=== PATIENT | female | born 1955 | race Caucasian/White ===

== ENCOUNTER 2017-06-19 16:25 | Emergency (ER) | payer BC ==
[~2017-06-19] VITALS: Ht 172.7 cm; Wt 83.2 kg
[~2017-06-19 16:25] MED LIST: AMB10 PO; CYM60 PO; FSM70 PO; NORT25CA PO; NXM/40 PO; OXYC-57 PO; RIZA10TA18 PO; TIZA4CAP PO
[2017-06-19 16:27] VITALS: Ht 172.7 cm; Wt 83.2 kg
[2017-06-19] MEDS ORDERED: SODIUM CHLORIDE 0.9% 1000ML 500 ML IV STA (16:36)
[2017-06-19] MEDS ORDERED: ONDANSETRON INJ 2 MG/ML 2 ML VIAL IV STA (16:36)
[2017-06-19] MEDS ORDERED: SODIUM CHLORIDE 0.9% 1000ML 1,000 ML IV STA (16:36)
--- NOTE | 2017-06-19 16:48 | EMERGENCY ROOM VISIT NOTE ---
History Report prepared by Curtis: Isauro Gallegos Under the Supervision of: Dr. Harmeet Moeller M.D. First contact with patient: 16:30 Chief Complaint: ABDOMINAL PAIN Stated Complaint: INTERNAL PAIN Nursing Triage Summary: Pt c/o pain "where my gall bladder used to be the whole way down (into pelvis)" States she has "no female parts". Has had tests for UTI, started Bactrim, but culture was negative so she stopped taking it. Denies n/v/d History of Present Illness The patient is a 62 year old female who presents to the Emergency Room with complaints of intermittent abdominal pain that started two months ago. She rates her pain as an 8/10 in severity and states that the pain radiates from her upper abdomen "where the gallbladder used to be" down into her pelvis. The patient states that driving in the car, pushing on her abdomen, and having a bowel movement worsens her pain. She reports that a couple of weeks ago she went to Urgent Care where she had UTI testing done and was given Bactrim--she had taken a course of Cipro before the Bactrim. The patient reports that Urgent Care called her following her visit to report that her culture was negative and told her to stop taking her medication. She states that she took medication for the pain yesterday, but was experiencing nausea after taking it, which prompted her to stop. The patient admits to a history of a cholecystectomy, hysterectomy , and diverticulosis. She denies a history of an appendectomy or diverticulitis. The patient denies urinary symptoms, fever, cough, cold, congestion, current nausea, abdominal trauma, abdominal imaging, and medication allergies. Source of History: patient Onset: two months ago Symptom Intensity: 8/10 Timing: intermittent Modifying Factors (Worsening): other (pushing on the area, driving, bowel movement.) Associated Symptoms: No fevers, No cough, No nausea, No urinary symptoms Review of Systems See HPI for pertinent positives & negatives. A total of 10 systems reviewed and were otherwise negative. Past Medical & Surgical Medical Problems: (1) Fibromyalgia (2) Hypertension (3) Migraines Family History No pertinent family history Social History Smoking Status: Never Smoker Marital Status: Housing Status: lives with significant other Occupation Status: employed Current/Historical Medications Scheduled Amlodipine (Norvasc), 5 MG PO DAILY Armodafinil (Nuvigil), 250 MG PO DAILY Calcium Carbonate (Calcium), 600 MG PO DAILY Carisoprodol (Soma), 350 MG PO TID Cholecalciferol (Vitamin D3), 1,000 UNITS PO DAILY Escitalopram Oxalate (Lexapro), 20 MG PO DAILY Esomeprazole Magnesium (Nexium), 40 MG PO DAILY Gabapentin (Neurontin), 300 MG PO TID Hctz/Losartan (Hyzaar 25MG/100MG), 1 TAB PO DAILY Hydroxychloroquine Sulfate (Plaquenil), 200 MG PO DAILY Multivitamin (Multivitamin), 1 TAB PO DAILY Pramipexole Dihydrochloride (Mirapex), 0.25 MG PO HS Rosuvastatin Calcium (Crestor), 20 MG PO HS Zolpidem Tartrate (Ambien), 10 MG PO HS [Methylprednisolone], 1 DOSE INJ Q3MO Scheduled PRN Acetaminophen (Tylenol), 500 MG PO UD PRN for Pain Diclofenac W/ Misoprostol (Arthrotec), 1 TAB PO BID PRN for arthritis Hydrocodone/Acetaminophen 7.5MG/325MG ([place] 7.5MG/325MG), 1 TAB PO UD PRN for Pain Lidocaine (Aspercreme W/Lidocaine), 1 APPLN TOP UD PRN for Pain Riboflavin (Vitamin B-2), 400 MG PO DAILY PRN for HEADACHE PREVENTION Rizatriptan Benzoate (Maxalt), 10 MG PO UD PRN for Migraine Senna/Docusate Sod (Senokot S), 1 TAB PO DAILY PRN for Constipation Allergies Coded Allergies: No Known Allergies (Unverified , 06/19/17) Physical Exam Vital Signs Date Time Temp Pulse Resp B/P (MAP) Pulse Ox O2 Delivery O2 Flow Rate FiO2 06/19/17 20:08 36.4 66 18 117/75 95 06/19/17 18:45 64 18 121/78 95 06/19/17 16:27 36.4 79 17 143/96 96 Room Air Physical Exam GENERAL: Patient is in no acute distress. HEENT: No acute trauma, normocephalic atraumatic, mucous membranes moist, no nasal congestion, no scleral icterus. NECK: No stridor, no adenopathy, no meningismus, trachea is midline. LUNGS: Clear to auscultation bilaterally, no wheeze, no rhonchi, breath sounds equal. HEART: Subtle systolic murmur. Regular rate and rhythm ABDOMEN: Soft, tender primarily in lower left quadrant and left upper abdomen, bowel sounds positive, no hernias, no peritonitis. EXTREMITIES: No cyanosis or edema, full range of motion of all the joints without pain or difficulty, no signs for acute trauma. NEUROLOGIC: Oriented x 3, no acute motor or sensory deficits, no focal weakness. SKIN: No rash, no jaundice, no diaphoresis. Medical Decision & Procedures ER Provider Diagnostic Interpretation: CT results as stated below per my review and radiologist interpretation: CT OF THE ABDOMEN AND PELVIS WITH CONTRAST CLINICAL HISTORY: Abdominal pain. Evaluate for diverticulitis. COMPARISON STUDY: None. TECHNIQUE: Following IV administration of 115 mL of Optiray-320, axial images of the abdomen and pelvis were obtained from the lung bases to the proximal femurs. Images were reviewed in the axial, sagittal, and coronal planes. IV contrast was administered without complication. A dose lowering technique was utilized adhering to the principles of ALARA. Oral contrast was administered. CT DOSE: 505.85 mGy.cm FINDINGS: The heart is mildly enlarged. Mild dilatation of the common bile duct is likely due to cholecystectomy. There is fatty infiltration of the liver. The spleen, adrenal glands, kidneys and pancreas are unremarkable. There is no hydronephrosis. The caliber and wall thickness of small and large bowel are normal. The appendix is normal. Note is made of left colon diverticulosis without evidence for acute diverticulitis. There is no abscess or ascites. No lymphadenopathy is present. The uterus is surgically absent. No suspicious skeletal lesions are identified. There are postoperative findings within the lumbar spine. IMPRESSION: 1. No acute process within the abdomen or pelvis. 2. Colonic diverticulosis without evidence for acute diverticulitis. 3. No bowel obstruction. Normal appendix. Electronically signed by: Jorge Morton M.D. 06/19/2017 7:22 PM Dictated Date/Time: 06/19/2017 7:14 PM Laboratory Results 06/19/17 16:48 Red Blood Count 4.41, Mean Corpuscular Volume 91.6, Mean Corpuscular Hemoglobin 31.5, Mean Corpuscular Hemoglobin Concent 34.4, Mean Platelet Volume 9.9, Neutrophils (%) (Auto) 48.5, Lymphocytes (%) (Auto) 44.7, Monocytes (%) (Auto) 4.0, Eosinophils (%) (Auto) 2.2, Basophils (%) (Auto) 0.4, Neutrophils # (Auto) 4.38, Lymphocytes # (Auto) 4.04, Monocytes # (Auto) 0.36, Eosinophils # (Auto) 0.20, Basophils # (Auto) 0.04 06/19/17 16:48 Test 06/19/17 00:00 06/19/17 16:48 Urine Color YELLOW Urine Appearance CLEAR (CLEAR) Urine pH 5.0 (4.5-7.5) Urine Specific [place] 1.015 (1.000-1.030) Urine Protein NEG (NEG) Urine Glucose (UA) NEG (NEG) Urine Ketones NEG (NEG) Urine Occult Blood NEG (NEG) Urine Nitrite NEG (NEG) Urine Bilirubin NEG (NEG) Urine Urobilinogen NEG (NEG) Urine Leukocyte Esterase NEG (NEG) White Blood Count 9.04 K/uL (4.8-10.8) Red Blood Count 4.41 M/uL (4.2-5.4) Hemoglobin 13.9 g/dL (12.0-16.0) Hematocrit 40.4 % (37-47) Mean Corpuscular Volume 91.6 fL (80-100) Mean Corpuscular Hemoglobin 31.5 pg (25-34) Mean Corpuscular Hemoglobin Concent 34.4 g/dl (32-36) Platelet Count 291 K/uL (130-400) Mean Platelet Volume 9.9 fL (7.4-10.4) Neutrophils (%) (Auto) 48.5 % Lymphocytes (%) (Auto) 44.7 % Monocytes (%) (Auto) 4.0 % Eosinophils (%) (Auto) 2.2 % Basophils (%) (Auto) 0.4 % Neutrophils # (Auto) 4.38 K/uL (1.4-6.5) Lymphocytes # (Auto) 4.04 K/uL (1.2-3.4) Monocytes # (Auto) 0.36 K/uL (0.11-0.59) Eosinophils # (Auto) 0.20 K/uL (0-0.5) Basophils # (Auto) 0.04 K/uL (0-0.2) RDW Standard Deviation 45.2 fL (36.4-46.3) RDW Coefficient of Variation 13.4 % (11.5-14.5) Immature Granulocyte % (Auto) 0.2 % Immature Granulocyte # (Auto) 0.02 K/uL (0.00-0.02) Anion Gap 9.0 mmol/L (3-11) Est Creatinine Clear Calc Drug Dose 67.6 ml/min Estimated GFR () 70.9 Estimated GFR (Non- 61.2 BUN/Creatinine Ratio 18.8 (10-20) Calcium Level 10.0 mg/dl (8.5-10.1) Total Bilirubin 0.5 mg/dl (0.2-1) Aspartate Amino Transf (AST/SGOT) 29 U/L (15-37) Alanine Aminotransferase (ALT/SGPT) 53 U/L (12-78) Alkaline Phosphatase 48 U/L (45-117) Total Protein 7.8 gm/dl (6.4-8.2) Albumin 4.6 gm/dl (3.4-5.0) Globulin 3.2 gm/dl (2.5-4.0) Albumin/Globulin Ratio 1.4 (0.9-2) Lipase 171 U/L (73-393) Laboratory results reviewed by me. Medications Administered Medications (Trade) Dose Ordered Sig/Edwin Route Start Time Stop Time Status Last Admin Dose Admin Sodium Chloride 500 ml @ 999 mls/hr Q31M STAT IV 06/19/17 16:36 06/19/17 17:06 DC 06/19/17 16:36 999 MLS/HR Ondansetron HCl (Zofran Inj) 4 mg NOW STAT IV 06/19/17 16:36 06/19/17 16:37 DC 06/19/17 17:26 4 MG Sodium Chloride 1,000 ml @ 200 mls/hr Q5H STAT IV 06/19/17 16:36 06/19/17 20:53 DC 06/19/17 16:36 200 MLS/HR Ketorolac Tromethamine (Toradol Inj) 30 mg NOW STAT IV 06/19/17 17:20 06/19/17 17:21 DC 06/19/17 17:27 30 MG Morphine Sulfate (MoRPHine SULFATE INJ) 4 mg Q15M PRN IV 06/19/17 19:15 06/19/17 20:53 DC 06/19/17 19:23 4 MG ED Course 1631: The patient was evaluated in room B03B. A complete history and physical exam was performed 1636: Sodium Chloride 1000 ml @ 200 mls/hr IV, Zofran Injection 4 mg IV, Sodium Chloride 500 ml @ 999 mls/hr IV. 1720: Toradol Injection 30 mg IV. 1914: Morphine Sulfate 4 mg IV. 1931: Reevaluated the patient and she is doing well. Discussed results and discharge instructions: She verbalized understanding and agreement. The patient is ready for discharge. Medical Decision The patient is a 62 year old female who presents to the ED with complaints of intermittent abdominal pain that started two months ago. Differential diagnoses considered include diverticulitis appendicitis, UTI, pancreatitis, hernia, malignancy, musculoskeletal pain, renal stone, and renal failure. Medication Reconciliation: I attest that I have personally reviewed the patient' s current medication list. Blood pressure screening: Patient was found to have a slightly elevated blood pressure due to circumstances. I do not believe that the patient requires hypertension monitoring. There is no leukocytosis or concerning anemia. No significant electrolyte abnormality or kidney failure. There is no hepatitis. Urinalysis does not show infection. Abdominal and pelvis CT does not show diverticulitis or any evidence for abscess. There is no bowel obstruction. No findings on CT that would explain her pain. On exam, the patient was not febrile or toxic, there was no peritonitis. The patient was told the results of all her testing. During her ER stay, she received IV saline, IV Toradol, IV Zofran and IV morphine. She is comfortable. The patient will need to follow with her doctors office and possibly GI, the cause for the pain is not clear. She understands that she should return for fever, worsening symptoms or persistent vomiting. Impression Primary Impression: Left sided abdominal pain Scribe Attestation The scribe's documentation has been prepared under my direction and personally reviewed by me in its entirety. I confirm that the note above accurately reflects all work, treatment, procedures, and medical decision making performed by me. Departure Information Dispostion Home / Self-Care Referrals Latanya Tyler MD (PCP) Forms Call Back Authorization, HOME CARE DOCUMENTATION FORM, IMPORTANT VISIT INFORMATION Patient Instructions My [facility] Additional Instructions heat to the area may help follow with your doctor, you may need a GI referral return for fever, vomiting or uncontrolled pain lab testing and imaging today was all ok
[2017-06-19] MEDS ORDERED: OPTIRAY 320 IV PRN (17:00)
[2017-06-19 17:01] LABS: MANUAL MICROSCOPIC REQUIRED? NO; REVIEW REQ? NO; URINE APPEARANCE CLEAR (CLEAR); URINE BILIRUBIN NEG (NEG); URINE COLOR YELLOW; URINE NITRITE NEG (NEG); URINE SPECIFIC GRAVITY 1.015 (1.000-1.030); UROBILINOGEN NEG (NEG); ZZUR CULT IF INDIC CLEAN CATCH NO
[2017-06-19 17:03] LABS: BASO % 0.4 %; BASO ABS # 0.04 K/uL (0-0.2); COMPLETE YES; EOS % 2.2 %; HEMATOCRIT 40.4 % (37-47); IG% 0.2 %; LYMPH % 44.7 %; LYMPH ABS # 4.04 K/uL (1.2-3.4); MEAN CELL VOLUME 91.6 fL (80-100); MEAN CORPUSCULAR HEMOGLOBIN 31.5 pg (25-34); MEAN CORPUSCULAR HGB CONC 34.4 g/dl (32-36); MEAN PLATELET VOLUME 9.9 fL (7.4-10.4); NEUT % 48.5 %; PLATELET COUNT 291 K/uL (130-400); RED BLOOD COUNT 4.41 M/uL (4.2-5.4); WHITE BLOOD COUNT 9.04 K/uL (4.8-10.8)
[2017-06-19] MEDS ORDERED: GABA-113 PO (17:10)
[2017-06-19] MEDS ORDERED: ESCI1TAB10 PO (17:10)
[2017-06-19] MEDS ORDERED: AMLO-110 PO (17:10)
[2017-06-19] MEDS ORDERED: ZOLP10TA PO (17:10)
[2017-06-19] MEDS ORDERED: CARI350T28 PO (17:10)
[2017-06-19] MEDS ORDERED: HYZ/10015 PO (17:10)
[2017-06-19] MEDS ORDERED: VITB2100 PO (17:10)
[2017-06-19] MEDS ORDERED: HYDR200T5 PO (17:10)
[2017-06-19] MEDS ORDERED: SENN-65 PO (17:11)
[2017-06-19] MEDS ORDERED: CALC-393 PO (17:11)
[2017-06-19] MEDS ORDERED: ROSU20TA PO (17:11)
[2017-06-19] MEDS ORDERED: CHOL1000 PO (17:11)
[2017-06-19] MEDS ORDERED: PRAM1TAB52 PO (17:11)
[2017-06-19] MEDS ORDERED: LIDO16CR TOP (17:11)
[2017-06-19] MEDS ORDERED: RIZA10TA18 PO (17:11)
[2017-06-19] MEDS ORDERED: ACET-1256 PO (17:11)
[2017-06-19] MEDS ORDERED: NXM/40 PO (17:11)
[2017-06-19] MEDS ORDERED: HYDR-3983 PO (17:11)
[2017-06-19] MEDS ORDERED: ARMO250T5 PO (17:11)
[2017-06-19] MEDS ORDERED: MULT-506 PO (17:11)
[2017-06-19] MEDS ORDERED: METHYLPREDNISOLONE INJ (17:11)
[2017-06-19] MEDS ORDERED: KETOROLAC TROMETHAMINE 30 MG/ML VIAL IV STA (17:20)
[2017-06-19 17:21] LABS: BUN/CREATININE RATIO 18.8 (10-20); POTASSIUM 3.4 mmol/L (3.5-5.1)
[2017-06-19 17:24] LABS: ALB/GLOB RATIO 1.4 (0.9-2)
[2017-06-19] MEDS ORDERED: MoRPHine SULFATE 4 MG/ML 1 ML CARP\\VIAL IV PRN (19:15)
--- NOTE | 2017-06-19 19:24 | DIAGNOSTIC IMAGING REPORT ---
CT OF THE ABDOMEN AND PELVIS WITH CONTRAST CLINICAL HISTORY: Abdominal pain. Evaluate for diverticulitis. COMPARISON STUDY: None. TECHNIQUE: Following IV administration of 115 mL of Optiray-320, axial images of the abdomen and pelvis were obtained from the lung bases to the proximal femurs. Images were reviewed in the axial, sagittal, and coronal planes. IV contrast was administered without complication. A dose lowering technique was utilized adhering to the principles of ALARA. Oral contrast was administered. CT DOSE: 505.85 mGy.cm FINDINGS: The heart is mildly enlarged. Mild dilatation of the common bile duct is likely due to cholecystectomy. There is fatty infiltration of the liver. The spleen, adrenal glands, kidneys and pancreas are unremarkable. There is no hydronephrosis. The caliber and wall thickness of small and large bowel are normal. The appendix is normal. Note is made of left colon diverticulosis without evidence for acute diverticulitis. There is no abscess or ascites. No lymphadenopathy is present. The uterus is surgically absent. No suspicious skeletal lesions are identified. There are postoperative findings within the lumbar spine. IMPRESSION: 1. No acute process within the abdomen or pelvis. 2. Colonic diverticulosis without evidence for acute diverticulitis. 3. No bowel obstruction. Normal appendix. Electronically signed by: Jorge Morton M.D. 06/19/2017 7:22 PM Dictated Date/Time: 06/19/2017 7:14 PM
[2017-06-19 20:08] VITALS: BP 117/75; PULSE 66; TEMP 36.4; O2SAT 95
== END 2017-06-19 20:00 | disposition home or self-care (01) ==
LOC: C.EDB 16:26
DX: R10.12 Left upper quadrant pain (principal); M79.7 Fibromyalgia; I10 Essential (primary) hypertension

== ENCOUNTER 2017-08-07 15:44 | Emergency (ER) | payer BC ==
[~2017-08-07] VITALS: Ht 172.7 cm; Wt 84.5 kg
[~2017-08-07 15:44] MED LIST changes: +ACET-1256 PO; -AMB10 PO; +AMLO-110 PO; +ARMO250T5 PO; +CALC-393 PO; +CARI350T28 PO; +CHOL1000 PO; -CYM60 PO; +ESCI1TAB10 PO; -FSM70 PO; +GABA-113 PO; +HYDR-3983 PO; +HYDR200T5 PO; +HYZ/10015 PO; +LIDO16CR TOP; +METHYLPREDNISOLONE INJ; +MULT-506 PO; -NORT25CA PO; -OXYC-57 PO; +PRAM1TAB52 PO; +ROSU20TA PO; +SENN-65 PO; -TIZA4CAP PO; +VITB2100 PO; +ZOLP10TA PO
[2017-08-07 15:47] VITALS: TEMP 36.7; Ht 172.7 cm; Wt 84.5 kg
[2017-08-07] MEDS ORDERED: SODIUM CHLORIDE 0.9% 1000ML 1,000 ML IV STA (16:00)
[2017-08-07] MEDS ORDERED: ONDANSETRON INJ 2 MG/ML 2 ML VIAL IV STA (16:00)
[2017-08-07] MEDS ORDERED: KETOROLAC TROMETHAMINE 30 MG/ML VIAL IV STA (16:00)
[2017-08-07] MEDS ORDERED: DENO60SO INJ (16:04)
[2017-08-07 16:25] LABS: BASO % 0.3 %; BASO ABS # 0.03 K/uL (0-0.2); COMPLETE YES; EOS % 1.7 %; HEMATOCRIT 40.2 % (37-47); IG% 0.3 %; LYMPH % 34.8 %; LYMPH ABS # 3.45 K/uL (1.2-3.4); MEAN CELL VOLUME 91.6 fL (80-100); MEAN CORPUSCULAR HGB CONC 33.8 g/dl (32-36); MEAN PLATELET VOLUME 9.2 fL (7.4-10.4); MONO % 4.9 %; PLATELET COUNT 278 K/uL (130-400); RED BLOOD COUNT 4.39 M/uL (4.2-5.4); WHITE BLOOD COUNT 9.92 K/uL (4.8-10.8)
[2017-08-07 16:43] LABS: ALT/SGPT 49 U/L (12-78); BLOOD UREA NITROGEN 11 mg/dl (7-18); BUN/CREATININE RATIO 11.2 (10-20); CARBON DIOXIDE 27 mmol/L (21-32); CHLORIDE 95 mmol/L (98-107); CREATININE 0.97 mg/dl (0.60-1.20); GLUCOSE 94 mg/dl (70-99); POTASSIUM 3.5 mmol/L (3.5-5.1); SODIUM 133 mmol/L (136-145)
[2017-08-07 16:48] LABS: ALKALINE PHOSPHATASE 62 U/L (45-117); AST/SGOT 27 U/L (15-37)
[2017-08-07] MEDS ORDERED: DICLTAB4 PO (17:10)
--- NOTE | 2017-08-07 17:13 | DIAGNOSTIC IMAGING REPORT ---
CHEST ONE VIEW PORTABLE HISTORY: 62 years-old Female r jaw pain acute right-sided jaw pain. COMPARISON: Chest radiograph 03/04/2016 TECHNIQUE: Portable upright AP view of the chest FINDINGS: Cardiac silhouette is again mildly enlarged. No pneumothorax, pleural effusion or focal airspace consolidation. The bones of the chest appear grossly intact. Surgical clips are seen within the right upper abdomen. IMPRESSION: Mild cardiomegaly without acute cardiopulmonary process. The above report was generated using voice recognition software. It may contain grammatical, syntax or spelling errors. Electronically signed by: Shay Masters M.D. 08/07/2017 5:11 PM Dictated Date/Time: 08/07/2017 5:10 PM
[2017-08-07] MEDS ORDERED: MoRPHine SULFATE 4 MG/ML 1 ML CARP\\VIAL ONE (18:10)
[2017-08-07 18:40] VITALS: BP 117/72; PULSE 76; O2SAT 100
--- NOTE | 2017-08-07 20:12 | EMERGENCY ROOM VISIT NOTE ---
History Report prepared by Curtis: Nelia Ford Under the Supervision of: Dr. Stiven Mendoza D.O. First contact with patient: 15:51 Chief Complaint: ILLNESS Stated Complaint: JAW PAIN,DIZZY,NAUSEA,TIRED History of Present Illness The patient is a 62 year old female who presents to the Emergency Room with complaints of persistent right jaw pain starting 3 days ago. She was not doing anything when the pain started. She woke up with the pain. She has never had this pain before. The pain goes up near her ear, but she denies any ear pain. She denies any trouble swallowing, sore throat, or rhinorrhea. She has also been feeling intermittently lightheaded for the past 3 days. She last experienced this lightheadedness 1 hour ago. It has occurred while she was watching TV. She reports nausea, generalized weakness, muscle spasms, and fatigue. She denies any abdominal pain, fever, chest pain, SOB, vomiting, diarrhea, or dysuria. She notes that her mother was recently sick with facial cellulitis, MRSA, and C diff. She denies any history of GA. She has a history of fibromyalgia and osteoarthritis. She denies any new medications. Source of History: patient Onset: 3 days ago Position: jaw (right) Quality: other (pain) Timing: other (persistent) Associated Symptoms: + nausea, + fatigue, + weakness, No fevers, No sorethroat, No chest pain, No SOB, No vomiting, No abdominal pain, No diarrhea, No urinary symptoms Note: Pt reports lightheadedness, muscle spasms. Pt denies rhinorrhea, ear pain. Review of Systems See HPI for pertinent positives & negatives. A total of 10 systems reviewed and were otherwise negative. Past Medical & Surgical Medical Problems: (1) Fibromyalgia (2) Hypertension (3) Migraines Family History No pertinent family history Social History Smoking Status: Never Smoker Marital Status: Housing Status: lives with significant other Occupation Status: employed Current/Historical Medications Scheduled Amlodipine (Norvasc), 5 MG PO DAILY Calcium Carbonate (Calcium), 600 MG PO DAILY Carisoprodol (Soma), 350 MG PO TID Cholecalciferol (Vitamin D3), 1,000 UNITS PO DAILY Denosumab (Prolia), 1 DOSE INJ Q3MO Diclofenac W/ Misoprostol (Arthrotec), 1 TAB PO BID Escitalopram Oxalate (Lexapro), 20 MG PO DAILY Esomeprazole Magnesium (Nexium), 40 MG PO DAILY Gabapentin (Neurontin), 300 MG PO TID Hctz/Losartan (Hyzaar 25MG/100MG), 1 TAB PO DAILY Hydroxychloroquine Sulfate (Plaquenil), 200 MG PO DAILY Multivitamin (Multivitamin), 1 TAB PO DAILY Pramipexole Dihydrochloride (Mirapex), 0.25 MG PO HS Rosuvastatin Calcium (Crestor), 20 MG PO HS Zolpidem Tartrate (Ambien), 10 MG PO HS [Methylprednisolone], 1 DOSE INJ Q3MO Scheduled PRN Acetaminophen (Tylenol), 500 MG PO UD PRN for Pain Armodafinil (Nuvigil), 250 MG PO DAILY PRN for Hydrocodone/Acetaminophen 7.5MG/325MG ([place] 7.5MG/325MG), 1 TAB PO UD PRN for Pain Lidocaine (Aspercreme W/Lidocaine), 1 APPLN TOP UD PRN for Pain Riboflavin (Vitamin B-2), 400 MG PO DAILY PRN for HEADACHE PREVENTION Rizatriptan Benzoate (Maxalt), 10 MG PO UD PRN for Migraine Senna/Docusate Sod (Senokot S), 1 TAB PO DAILY PRN for Constipation Allergies Coded Allergies: No Known Allergies (Unverified , 08/07/17) Physical Exam Vital Signs Date Time Temp Pulse Resp B/P (MAP) Pulse Ox O2 Delivery O2 Flow Rate FiO2 08/07/17 18:40 76 17 117/72 100 08/07/17 18:20 68 14 111/65 94 Room Air 08/07/17 17:00 69 16 112/65 95 Room Air 08/07/17 16:26 70 17 125/75 95 Room Air 08/07/17 15:47 36.7 81 18 133/84 96 Room Air Physical Exam GENERAL: sitting up in bed, alert, well appearing, well nourished, no distress, non-toxic HEAD: Tenderness along the right jawline with no appreciable masses. Right inframandibular anterior cervical chain lymph node slightly tender to palpation. EYE EXAM: normal conjunctiva, PERRL and EOM's intact OROPHARYNX: no exudate, no erythema, lips, buccal mucosa, and tongue normal and mucous membranes are moist NECK: supple, no nuchal rigidity, no adenopathy, non-tender LUNGS: Clear to auscultation. Normal chest wall mechanics HEART: no murmurs, S1 normal and S2 normal ABDOMEN: abdomen soft, non-tender, normo-active bowel sounds, no masses, no rebound or guarding. BACK: Back is symmetrical on inspection and there is no deformity, no midline tenderness, no CVA tenderness. SKIN: no rashes and no bruising UPPER EXTREMITIES: upper extremities are grossly normal. LOWER EXTREMITIES: No pitting edema. NEURO EXAM: Normal sensorium, cranial nerves II-XII intact, normal speech, no weakness of arms, no weakness of legs. No drift. Finger to nose intact. Gross sensation intact. Medical Decision & Procedures ER Provider Diagnostic Interpretation: Radiology results as stated below per my review and the radiologist's interpretation: CHEST ONE VIEW PORTABLE HISTORY: 62 years-old Female r jaw pain acute right-sided jaw pain. COMPARISON: Chest radiograph 03/04/2016 TECHNIQUE: Portable upright AP view of the chest FINDINGS: Cardiac silhouette is again mildly enlarged. No pneumothorax, pleural effusion or focal airspace consolidation. The bones of the chest appear grossly intact. Surgical clips are seen within the right upper abdomen. IMPRESSION: Mild cardiomegaly without acute cardiopulmonary process. The above report was generated using voice recognition software. It may contain grammatical, syntax or spelling errors. Electronically signed by: Shay Masters M.D. 08/07/2017 5:11 PM Dictated Date/Time: 08/07/2017 5:10 PM Laboratory Results 08/07/17 16:15 Red Blood Count 4.39, Mean Corpuscular Volume 91.6, Mean Corpuscular Hemoglobin 31.0, Mean Corpuscular Hemoglobin Concent 33.8, Mean Platelet Volume 9.2, Neutrophils (%) (Auto) 58.0, Lymphocytes (%) (Auto) 34.8, Monocytes (%) (Auto) 4.9, Eosinophils (%) (Auto) 1.7, Basophils (%) (Auto) 0.3, Neutrophils # (Auto) 5.75, Lymphocytes # (Auto) 3.45, Monocytes # (Auto) 0.49, Eosinophils # (Auto) 0.17, Basophils # (Auto) 0.03 08/07/17 16:15 Test 08/07/17 16:15 White Blood Count 9.92 K/uL (4.8-10.8) Red Blood Count 4.39 M/uL (4.2-5.4) Hemoglobin 13.6 g/dL (12.0-16.0) Hematocrit 40.2 % (37-47) Mean Corpuscular Volume 91.6 fL (80-100) Mean Corpuscular Hemoglobin 31.0 pg (25-34) Mean Corpuscular Hemoglobin Concent 33.8 g/dl (32-36) Platelet Count 278 K/uL (130-400) Mean Platelet Volume 9.2 fL (7.4-10.4) Neutrophils (%) (Auto) 58.0 % Lymphocytes (%) (Auto) 34.8 % Monocytes (%) (Auto) 4.9 % Eosinophils (%) (Auto) 1.7 % Basophils (%) (Auto) 0.3 % Neutrophils # (Auto) 5.75 K/uL (1.4-6.5) Lymphocytes # (Auto) 3.45 K/uL (1.2-3.4) Monocytes # (Auto) 0.49 K/uL (0.11-0.59) Eosinophils # (Auto) 0.17 K/uL (0-0.5) Basophils # (Auto) 0.03 K/uL (0-0.2) RDW Standard Deviation 43.6 fL (36.4-46.3) RDW Coefficient of Variation 13.0 % (11.5-14.5) Immature Granulocyte % (Auto) 0.3 % Immature Granulocyte # (Auto) 0.03 K/uL (0.00-0.02) Anion Gap 11.0 mmol/L (3-11) Est Creatinine Clear Calc Drug Dose 70.2 ml/min Estimated GFR () 73.6 Estimated GFR (Non- 63.5 BUN/Creatinine Ratio 11.2 (10-20) Calcium Level 9.0 mg/dl (8.5-10.1) Total Bilirubin 0.4 mg/dl (0.2-1) Direct Bilirubin < 0.1 mg/dl (0-0.2) Aspartate Amino Transf (AST/SGOT) 27 U/L (15-37) Alanine Aminotransferase (ALT/SGPT) 49 U/L (12-78) Alkaline Phosphatase 62 U/L (45-117) Troponin I < 0.015 ng/ml (0-0.045) Total Protein 7.8 gm/dl (6.4-8.2) Albumin 4.1 gm/dl (3.4-5.0) Lipase 125 U/L (73-393) Laboratory results per my review. Medications Administered Medications (Trade) Dose Ordered Sig/Edwin Route Start Time Stop Time Status Last Admin Dose Admin Sodium Chloride 1,000 ml @ 999 mls/hr Q1H1M STAT IV 08/07/17 16:00 08/07/17 17:00 DC 08/07/17 16:16 999 MLS/HR Ketorolac Tromethamine (Toradol Inj) 30 mg NOW STAT IV 08/07/17 16:00 08/07/17 16:02 DC 08/07/17 16:16 30 MG Ondansetron HCl (Zofran Inj) 4 mg NOW STAT IV 08/07/17 16:00 08/07/17 16:02 DC 08/07/17 16:16 4 MG Morphine Sulfate (MoRPHine SULFATE INJ) 4 mg STK-MED ONCE .ROUTE 08/07/17 18:10 08/07/17 18:11 DC 08/07/17 18:12 4 MG ECG Indication: other (jaw pain) Rate (beats per minute): 70 Rhythm: sinus rhythm Findings: T-wave inversion (Septal), other (normal axis, normal intervals) Comparison ECG Date: 04-Mar-2016 Change: no significant change ED Course ED COURSE: Vital signs were reviewed and showed hypertension. The patients medical record was reviewed The above diagnostic studies were performed and reviewed. ED treatments and interventions as stated above. 1552: The patient was evaluated in room C7. A complete history and physical examination was performed. 1600: Zofran Inj 4 mg IV, Toradol Inj 30 mg IV, NSS 1000 ml @ 999 mls/hr IV. 1810: Morphine Sulfate 4 mg IV. 1830: Upon reevaluation, the patient is resting comfortably.I discussed my findings with the patient and she understands and agrees with the treatment plan. Based on the patients age, coexisting illnesses, exam and lab findings the decision to treat as an outpatient was made. The patient remained stable while under my care. The patient appeared well at the time of discharge. Medical Decision Differential diagnosis: abscess, parotitis, Fuentes's angina, retropharyngeal abscess, peritonsillar abscess, dental abscess, cardiac. Patient is a 62-year-old female who presents to ER for right-sided jaw pain. No signs of infection. Vitals are unremarkable. Minimal nausea. CBC on BMP, LFTs, bilirubin and troponin was negative. No chest pain or shortness of breath. No arm pain. No signs of Fuentes angina. Able to eat and drink without difficulty. Chest x-ray was unremarkable. EKG was unchanged. Minimal tenderness in the set of mandibular region which is acutely tender to palpation. Patient is noted complaints. Patient was given fluids, Toradol morphine. She did feel better. No signs of dental infection. Patient was discharged follow-up with PCP. Discussed with Pt concerning signs and symptoms to watch out for. Pt was instructed to follow up with their PCP and discussed with the patient their option to return to the ED at anytime for persistent or worsening symptoms. The appropriate anticipatory guidance and out-patient management, including indications for return to the emergency department, were explained at length to the patient and understood. Medication Reconcilliation Current Medication List: was personally reviewed by me Blood Pressure Screening Patient's blood pressure: Normal blood pressure Blood pressure disposition: Did not require urgent referral Impression Primary Impression: Jaw pain Scribe Attestation The scribe's documentation has been prepared under my direction and personally reviewed by me in its entirety. I confirm that the note above accurately reflects all work, treatment, procedures, and medical decision making performed by me. Departure Information Dispostion Home / Self-Care Referrals Latanya Tyler MD (PCP) Forms HOME CARE DOCUMENTATION FORM, IMPORTANT VISIT INFORMATION, WORK / SCHOOL INSTRUCTIONS Patient Instructions ED Cervical Adenitis No Abx Tx, My [facility], TMD Self Care Additional Instructions Please follow up with your primary care doctor or if you are a student, [facility] with in the next 24 hours. Any worsening of your symptoms, please return to the ED immediately. This includes any fevers greater than 100.4, trouble swallowing, swelling in mouth, trouble breathing, worsening pain, chest pain, shortness breath, persistent nausea, vomiting, unable to eat or drink, or any other concerning signs or symptoms from your standpoint. You were given medications during this visit that will inhibit your ability to drive, operate machinery and work. Please do NOT drive, operate machinery, drink alcohol or work for the next 12hrs. This take Tylenol or Motrin as needed for pain.
== END 2017-08-07 18:40 | disposition home or self-care (01) ==
LOC: C.EDB 15:45 → C.EDC 18:40
DX: R68.84 Jaw pain (principal); I10 Essential (primary) hypertension; Z79.899 Other long term (current) drug therapy

== ENCOUNTER → 2017-09-22 | Outpatient (CLI) | payer BC ==
[~2017-09-22] MED LIST changes: +DENO60SO INJ; +DICLTAB4 PO
== END | disposition home or self-care (01) ==
LOC: C.LABSPEC 17:30
PROVIDERS: ATTEND Family Medicine
DX: R39.9 Unspecified symptoms and signs involving the genitourinary system (principal)

== ENCOUNTER → 2017-09-27 | Outpatient (CLI) | payer BC ==
--- NOTE | 2017-09-27 12:39 | DIAGNOSTIC IMAGING REPORT ---
RENAL ULTRASOUND HISTORY: R35.0 Increased urinary frequency Pt with ongoing frequency, sens COMPARISON: None. FINDINGS: Right kidney: 10.1 cm. No hydronephrosis. Normal corticomedullary differentiation with mild cortical renal thinning. Left kidney: 10.3 cm. No hydronephrosis. Normal corticomedullary differentiation with mild cortical renal thinning. Bladder: No bladder wall thickening. The bladder is underdistended limiting evaluation. The bilateral ureteral jets were not identified. Miscellaneous: Hepatic steatosis. IMPRESSION: 1. Mild bilateral cortical renal thinning. No hydronephrosis. 2. Hepatic steatosis. Electronically signed by: Basil Cloud M.D. 09/27/2017 12:38 PM Dictated Date/Time: 09/27/2017 12:36 PM
== END | disposition home or self-care (01) ==
LOC: C.ULTR 12:05
PROVIDERS: ATTEND Family Medicine
DX: R35.0 Frequency of micturition (principal); K76.0 Fatty (change of) liver, not elsewhere classified

== ENCOUNTER → 2018-06-13 | Outpatient (CLI) | payer OTHER ==
[~2018-06-13] MED LIST changes: -AMLO-110 PO; +AMLO5TAB3 PO
[2018-06-14 06:07] LABS: HEMOGLOBIN A1C 5.9 % (4.5-5.6)
== END | disposition home or self-care (01) ==
LOC: C.LABPBG 11:22
PROVIDERS: ATTEND Family Medicine
DX: R94.6 Abnormal results of thyroid function studies (principal); R73.9 Hyperglycemia, unspecified

== ENCOUNTER 2021-02-27 08:56 | Observation (INO) ==
--- NOTE | 2021-01-30 10:32 | PAT Medication Instructions ---
Medication Instructions Date of Service January 30, 2021 Home Medications Medication Instructions Recorded mirabegron 50 mg tablet,extended 50 mg PO DAILY #90 tab 02/14/20 release 24 hr furosemide 20 mg tablet 20 mg PO QAM PRN #90 tab 08/18/20 amitriptyline 10 mg tablet 10 mg PO DAILY #90 tab 09/10/20 rosuvastatin 20 mg tablet 20 mg PO DAILY #90 tab 09/10/20 rizatriptan 10 mg tablet 10 mg PO .COMPLEX #20 tab 09/11/20 hydrochlorothiazide 25 mg tablet 25 mg PO DAILY #90 tab 10/22/20 amlodipine 5 mg tablet 5 mg PO DAILY #90 tab 10/29/20 omeprazole 40 mg capsule,delayed 40 mg PO DAILY #90 cap 10/29/20 release naloxegol 12.5 mg tablet 12.5 mg PO QAM #90 tab 11/21/20 bupropion HCl 150 mg 24 hr tablet, 150 mg PO DAILY #90 tab 12/23/20 extended release tramadol 50 mg tablet 50 mg PO Q6H PRN #30 tab 12/29/20 liothyronine 25 mcg tablet 25 mcg PO DAILY #90 tab 01/01/21 losartan 100 mg tablet 100 mg PO DAILY #90 tab 01/20/21 gabapentin 300 mg capsule 300 mg PO TID multivitamin 1 tab PO QAM morphine 30 mg capsule,extended release pellets 30 mg PO Q12H PRN denosumab 60 mg/mL subcutaneous syringe 60 mg SQ Q6MO pramipexole 0.25 mg tablet 0.5 mg PO HS zolpidem 10 mg tablet 10 mg PO HS mirabegron 50 mg tablet,extended release 24 hr 50 mg PO DAILY calcium carb 300 mg-D3 800 unit-mag ox 25 mg-copra sampler 0.5 mg-hansel-Zn tablet 1 tab PO BID sulfasalazine 500 mg tablet 500 mg PO BID furosemide 20 mg tablet 20 mg PO QAM PRN amitriptyline 10 mg tablet 10 mg PO DAILY rosuvastatin 20 mg tablet 20 mg PO DAILY rizatriptan 10 mg tablet 10 mg PO .COMPLEX hydrochlorothiazide 25 mg tablet 25 mg PO DAILY amlodipine 5 mg tablet 5 mg PO DAILY omeprazole 40 mg capsule,delayed release 40 mg PO DAILY naloxegol 12.5 mg tablet 12.5 mg PO QAM bupropion HCl 150 mg 24 hr tablet, extended release 150 mg PO DAILY tramadol 50 mg tablet 50 mg PO Q6H PRN liothyronine 25 mcg tablet 25 mcg PO DAILY cyclobenzaprine 10 mg PO TID diflunisal 500 mg PO BID leflunomide 10 mg PO QAM losartan 100 mg tablet 100 mg PO DAILY Continue as directed denosumab 60 mg/mL subcutaneous syringe 60 mg SQ Q6MO ASK your surgeon for instructions diflunisal 500 mg PO BID ASK your prescriber and surgeon leflunomide 10 mg PO QAM sulfasalazine 500 mg tablet 500 mg PO BID DO NOT take the morning of surgery multivitamin 1 tab PO QAM mirabegron 50 mg tablet,extended release 24 hr 50 mg PO DAILY calcium carb 300 mg-D3 800 unit-mag ox 25 mg-copra sampler 0.5 mg-hansel-Zn tablet 1 tab PO BID furosemide 20 mg tablet 20 mg PO QAM PRN hydrochlorothiazide 25 mg tablet 25 mg PO DAILY cyclobenzaprine 10 mg PO TID losartan 100 mg tablet 100 mg PO DAILY Take morning of surgery With a small sip of water, OTHERWISE NOTHING TO EAT OR DRINK AFTER MIDNIGHT: gabapentin 300 mg capsule 300 mg PO TID morphine 30 mg capsule,extended release pellets 30 mg PO Q12H PRN (okay to take up to 4 hours prior to surgery if needed) amitriptyline 10 mg tablet 10 mg PO DAILY rosuvastatin 20 mg tablet 20 mg PO DAILY rizatriptan 10 mg tablet 10 mg PO .COMPLEX (if needed) amlodipine 5 mg tablet 5 mg PO DAILY omeprazole 40 mg capsule,delayed release 40 mg PO DAILY naloxegol 12.5 mg tablet 12.5 mg PO QAM (okay to take up to 4 hours prior to surgery if needed) bupropion HCl 150 mg 24 hr tablet, extended release 150 mg PO DAILY tramadol 50 mg tablet 50 mg PO Q6H PRN (okay to take up to 4 hours prior to surgery if needed) liothyronine 25 mcg tablet 25 mcg PO DAILY Take evening before surgery gabapentin 300 mg capsule 300 mg PO TID morphine 30 mg capsule,extended release pellets 30 mg PO Q12H PRN (if needed) pramipexole 0.25 mg tablet 0.5 mg PO HS zolpidem 10 mg tablet 10 mg PO HS calcium carb 300 mg-D3 800 unit-mag ox 25 mg-copra sampler 0.5 mg-hansel-Zn tablet 1 tab PO BID furosemide 20 mg tablet 20 mg PO QAM PRN (if needed) tramadol 50 mg tablet 50 mg PO Q6H PRN (if needed) cyclobenzaprine 10 mg PO TID Other Notes If you have any questions please call us at [phone] or [phone] or [phone] or [phone]
--- NOTE | 2021-02-02 13:23 | Anesthesiology Consultation ---
Date of Service February 02, 2021 Assessment & Plan (1) Encounter for pre-operative examination: - COVID screening: Per assessment on 02/02: Travel screen negative, no known COVID-19 positive contacts or current COVID-19 related symptoms. Surgeon arrang ing preop COVID testing. Awaiting results. - Naloxegol: Patient taking Naloxegol (peripherally acting -opioid receptor antagonist) for chronic constipation. Reviewed with Dr. Ortiz > he recommends patient continue perioperatively (patient made aware). Chart Review Chart Review: Acceptable Risk for Surgery and Patient seen in Pre Admission Testing Teaching & Discussion Pre-Anesthesia Teaching/Discussion Notes: Instructed NPO after midnight before surgery,except medications with 15 cc of water. Medication instructions provided according to the PAT guidelines. History Surgery Operation Date: 02/27/21 11:35 Proposed Procedures p Right Reverse Total Shoulder Arthroplasty - Luan Lopez DO Height/Weight Height: 5 ft 8.5 in Weight: 89.3 kg Allergies Allergy/AdvReac Type Severity Reaction Status Date / Time oxycodone AdvReac Mild Nausea Verified 01/14/21 13:43 Medications Home Medications Medication Instructions Recorded Confirmed Last Taken varicella-zoster gE vac,2 of 2 50 ml IM .Administer 0.5 ml IM #0.5 ea 03/22/19 01/06/21 Unknown mcg IM suspension gabapentin 300 mg capsule 300 mg PO TID #90 cap 04/05/19 01/14/21 Unknown multivitamin 1 tab PO QAM 04/05/19 01/14/21 Unknown morphine 30 mg capsule,extended 30 mg PO Q12H PRN 04/12/19 01/14/21 Unknown release pellets denosumab 60 mg/mL subcutaneous 60 mg SQ Q6MO ml 10/23/19 01/14/21 Unknown syringe pramipexole 0.25 mg tablet 0.5 mg PO HS tab 10/23/19 01/14/21 Unknown zolpidem 10 mg tablet 10 mg PO HS tab 10/23/19 01/14/21 Unknown mirabegron 50 mg tablet,extended 50 mg PO DAILY #90 tab 02/14/20 01/14/21 Unknown release 24 hr calcium carb 300 mg-D3 800 1 tab PO BID 05/27/20 01/14/21 Unknown unit-mag ox 25 mg-coping machine assembler 0.5 mg-hansel-Zn tablet sulfasalazine 500 mg tablet 500 mg PO BID tab 07/29/20 01/14/21 Unknown furosemide 20 mg tablet 20 mg PO QAM PRN #90 tab 08/18/20 01/14/21 Unknown amitriptyline 10 mg tablet 10 mg PO DAILY #90 tab 09/10/20 01/14/21 Unknown rosuvastatin 20 mg tablet 20 mg PO DAILY #90 tab 09/10/20 01/14/21 Unknown rizatriptan 10 mg tablet 10 mg PO .COMPLEX #20 tab 09/11/20 01/14/21 Unknown hydrochlorothiazide 25 mg tablet 25 mg PO DAILY #90 tab 10/22/20 01/14/21 Unknown amlodipine 5 mg tablet 5 mg PO DAILY #90 tab 10/29/20 01/14/21 Unknown omeprazole 40 mg capsule,delayed 40 mg PO DAILY #90 cap 10/29/20 01/14/21 Unknown release naloxegol 12.5 mg tablet 12.5 mg PO QAM #90 tab 11/21/20 01/14/21 Unknown bupropion HCl 150 mg 24 hr tablet, 150 mg PO DAILY #90 tab 12/23/20 01/14/21 Unknown extended release tramadol 50 mg tablet 50 mg PO Q6H PRN #30 tab 12/29/20 01/14/21 Unknown liothyronine 25 mcg tablet 25 mcg PO DAILY #90 tab 01/01/21 01/14/21 Unknown cyclobenzaprine 10 mg PO TID 01/14/21 01/14/21 Unknown diflunisal 500 mg PO BID 01/14/21 01/14/21 Unknown leflunomide 10 mg PO QAM 01/14/21 01/14/21 Unknown losartan 100 mg tablet 100 mg PO DAILY #90 tab 01/20/21 Unknown Past Medical History Medical History Arthritis Benign hypertension Constipation Degenerative disc disease Depression with anxiety Fibromyalgia GERD (gastroesophageal reflux disease) Hyperhidrosis Hyperlipidemia Hypothyroidism Migraine Neuropathy Overactive bladder Restless leg syndrome Exercise / Class Metabolic Activity III < 4 Walking/Shop/Light housework Past Family History Family History Brother Myocardial infarction Family history of diabetes mellitus Mother Uterine cancer Sister Family history of diabetes mellitus Other No family history of adverse response to anesthesia Denies family history of Ovarian cancer Prostate cancer Breast cancer Colorectal cancer Past Surgical History Surgical History Fusion of spine Lumbar H/O colonoscopy H/O total hysterectomy History of cholecystectomy History of dilatation and curettage Multiple History of tonsillectomy and adenoidectomy History of tooth extraction Past Anesthesia History No Hx of Anesthesia Complications and No Family Hx of Anesthesia Complications History of PONV No Hx of PONV and No Hx of Motion Sickness Social History Smoking Status: Never smoker Do You Dip or Chew Tobacco: No Hx Alcohol Use: Yes Alcohol type: wine alcohol intake frequency: a few times a month Hx Substance Use: No substance use type: does not use Review of Systems No snoring. Patient denies chest pain, shortness of breath, fever, chills, cough, wheezing, palpitations. Physical Exam Vital Signs VITALS BP 135/88 P 92 TEMP 98.5 SP02 95%RA RESP 16 PHYSICAL Full neck and c-spine range of motion. Full TMJ range of motion. TMD 4 finger breaths Mallampati Score 1 Dentition: upper full upper dentures Lungs: clear throughout to auscultation Cardiac: regular rate and rhythm, no murmurs noted Spine: normal Carotid arteries: negative bruit Extremities: no edema Testing Laboratory Results 02/02/21 13:48 02/02/21 13:48 PT 10.1 Seconds (9.0-12.0) 02/02/21 13:48 INR 1.0 (0.9-1.1) 02/02/21 13:48 APTT 22.8 Seconds (21.0-31.0) 02/02/21 13:48 Blood Type A Positive 02/02/21 13:48 Antibody Screen NEGATIVE 02/02/21 13:48 Surgeon's office flagged regarding elevated WBC. Electrocardiogram Date: 02/02/21 NSR at 89bpm. Low voltage QRS. Chest X-Ray Date: 02/02/21 FINDINGS: Cardiac silhouette is upper limits of normal in size, unchanged. No pneumothorax, pleural effusion, airspace consolidation or overt pulmonary edema. Bones of the chest appear grossly intact. Surgical clips of the upper abdomen suggest cholecystectomy. Lucencies of the right shoulder are suggestive of glenohumeral subcortical cystic change. Partially imaged lumbar spinal fusion hardware. IMPRESSION: No acute process.
--- NOTE | 2021-02-02 14:17 | XRay Report ---
XR chest Pre-admission PA/Lat HISTORY: 65 years-old Female pat preoperative exam. No acute chest complaints COMPARISON: Chest radiograph 08/07/2017 TECHNIQUE: PA and lateral views of the chest FINDINGS: Cardiac silhouette is upper limits of normal in size, unchanged. No pneumothorax, pleural effusion, a irspace consolidation or overt pulmonary edema. Bones of the chest appear grossly intact. Surgical cl ips of the upper abdomen suggest cholecystectomy. Lucencies of the right shoulder are suggestive of g lenohumeral subcortical cystic change. Partially imaged lumbar spinal fusion hardware. IMPRESSION: No acute process. ACT 112: Negative or not required by law. The above report was generated using voice recognition software. It may contain grammatical, syntax o r spelling errors. Electronically signed by: Shay Masters M.D. 02/02/2021 2:15 PM
[2021-02-02 14:41] LABS: BUN Creatinine Ratio 11.6 (10-20); Calcium 9.4 mg/dl (8.5-10.1); Creatinine Clr Calc Pharmacy 76.3 ml/min; Est GFR (African American) 79.9; Potassium 3.6 mmol/L (3.5-5.1)
[2021-02-02 14:44] LABS: Basophils # (auto) 0.04 K/uL (0-0.2); Basophils % (auto) 0.4 %; Eosinophils # (auto) 0.25 K/uL (0-0.5); Eosinophils % (auto) 2.3 %; Hematocrit (blood only) 41.4 % (37-47); Hemoglobin 13.7 g/dL (12.0-16.0); Immature Granulocytes # (auto) 0.04 K/uL (0.00-0.02); Immature Granulocytes % (auto) 0.4 %; Lymphocytes % (auto) 27.3 %; Mean Corpuscular Hemoglobin 31.3 pg (25-34); Mean Corpuscular Hgb Conc 33.1 g/dL (32-36); Mean Corpuscular Volume 94.5 fL (80-100); Mean Platelet Volume 9.8 fL (7.4-10.4); Monocytes # (auto) 0.56 K/uL (0.11-0.59); Monocytes % (auto) 5.1 %; Neutrophils # (auto) 7.11 K/uL (1.4-6.5); Neutrophils % (auto) 64.5 %; Platelet Count 261 K/uL (130-400); RDW Coefficient of Variation 14.8 % (11.5-14.5); RDW Standard Deviation 51.7 fL (36.4-46.3); Red Blood Count 4.38 M/uL (4.2-5.4)
--- NOTE | 2021-02-02 14:46 | Electrocardiogram Report ---
Test Reason : Blood Pressure : / mmHG Vent. Rate : 089 BPM Atrial Rate : 089 BPM P-R Int : 188 ms QRS Dur : 066 ms QT Int : 346 ms P-R-T Axes : 067 064 058 degrees QTc Int : 420 ms Normal sinus rhythm Low voltage QRS Borderline ECG When compared with ECG of 07-AUG-2017 16:12, Nonspecific T wave abnormality has replaced inverted T waves in Anterior leads Confirmed by Tyrell Bowman ([id number]) on 02/02/2021 2:45:39 PM Referred By: Luan Lopez Confirmed By:Tyrell Bowman
[2021-02-02 14:56] LABS: Partial Thromboplastin Ratio 0.9; Partial Thromboplastin Time 22.8 Seconds (21.0-31.0); Prothrombin Time 10.1 Seconds (9.0-12.0)
--- NOTE | 2021-02-26 07:00 | History & Physical Report ---
Date of Service February 26, 2021 Assessment & Plan (1) Osteoarthritis of right shoulder: We will proceed with a right reverse shoulder arthroplasty. Postoperatively she will be placed in a sling and kept overnight in the hospital for postoperative medical management. She plans to use [facility] upon discharge. History of Present Illness Chief Complaint: Osteoarthritis of the right shoulder. Primary Care Provider: Latanya Tyler MD Azucena is a pleasant 65-year-old female who fell on her outstretched arm over a year ago. She has been having significant shoulder pain since. X-rays did show some arthritis. MRI showed worse arthritis and a large posterior bony Bankart lesion. She had extensive fluid extending into the infraspinatus and atrophy of her infraspinatus muscle belly. After failing over a year conservative treatment, she has elected proceed with a right reverse shoulder arthroplasty.. Allergies Allergy/AdvReac Type Severity Reaction Status Date / Time oxycodone AdvReac Mild Nausea Verified 01/14/21 13:43 Home Medications Medication Instructions Recorded Confirmed Type varicella-zoster gE vac,2 of 2 50 ml IM .Administer 0.5 ml IM #0.5 ea 03/22/19 01/06/21 History mcg IM suspension gabapentin 300 mg capsule 300 mg PO TID #90 cap 04/05/19 01/14/21 History multivitamin 1 tab PO QAM 04/05/19 01/14/21 History morphine 30 mg capsule,extended 30 mg PO Q12H PRN 04/12/19 01/14/21 History release pellets denosumab 60 mg/mL subcutaneous 60 mg SQ Q6MO ml 10/23/19 01/14/21 History syringe pramipexole 0.25 mg tablet 0.5 mg PO HS tab 10/23/19 01/14/21 History zolpidem 10 mg tablet 10 mg PO HS tab 10/23/19 01/14/21 History mirabegron 50 mg tablet,extended 50 mg PO DAILY #90 tab 02/14/20 01/14/21 Rx release 24 hr calcium carb 300 mg-D3 800 1 tab PO BID 05/27/20 01/14/21 History unit-mag ox 25 mg-[employer] 0.5 mg-hansel-Zn tablet sulfasalazine 500 mg tablet 500 mg PO BID tab 07/29/20 01/14/21 History amitriptyline 10 mg tablet 10 mg PO DAILY #90 tab 09/10/20 01/14/21 Rx rosuvastatin 20 mg tablet 20 mg PO DAILY #90 tab 09/10/20 01/14/21 Rx hydrochlorothiazide 25 mg tablet 25 mg PO DAILY #90 tab 10/22/20 01/14/21 Rx amlodipine 5 mg tablet 5 mg PO DAILY #90 tab 10/29/20 01/14/21 Rx omeprazole 40 mg capsule,delayed 40 mg PO DAILY #90 cap 10/29/20 01/14/21 Rx release naloxegol 12.5 mg tablet 12.5 mg PO QAM #90 tab 11/21/20 01/14/21 Rx bupropion HCl 150 mg 24 hr tablet, 150 mg PO DAILY #90 tab 12/23/20 01/14/21 Rx extended release tramadol 50 mg tablet 50 mg PO Q6H PRN #30 tab 12/29/20 01/14/21 Rx liothyronine 25 mcg tablet 25 mcg PO DAILY #90 tab 01/01/21 01/14/21 Rx cyclobenzaprine 10 mg PO TID 01/14/21 01/14/21 History diflunisal 500 mg PO BID 01/14/21 01/14/21 History leflunomide 10 mg PO QAM 01/14/21 01/14/21 History losartan 100 mg tablet 100 mg PO DAILY #90 tab 01/20/21 Rx sulfamethoxazole 800 1 tab PO BID 7 Days #14 tab 02/05/21 Rx mg-trimethoprim 160 mg tablet furosemide 20 mg tablet 20 mg PO QAM PRN #90 tab 02/09/21 Rx rizatriptan 10 mg tablet 10 mg PO .COMPLEX #20 tab 02/09/21 Rx Past Med/Surg History Medical History Arthritis Benign hypertension Constipation Degenerative disc disease Depression with anxiety Fibromyalgia GERD (gastroesophageal reflux disease) Hyperhidrosis Hyperlipidemia Hypothyroidism Migraine Neuropathy Overactive bladder Restless leg syndrome Surgical History Fusion of spine Lumbar H/O colonoscopy H/O total hysterectomy History of cholecystectomy History of dilatation and curettage Multiple History of tonsillectomy and adenoidectomy History of tooth extraction Family History Brother Myocardial infarction Family history of diabetes mellitus Mother Uterine cancer Sister Family history of diabetes mellitus Other No family history of adverse response to anesthesia Denies family history of Ovarian cancer Prostate cancer Breast cancer Colorectal cancer Social History Smoking Status: Never smoker Second Hand Exposure: Yes ( A CHILD); Hx Alcohol Use: Yes Alcohol type: wine Alcohol Intake Frequency: Monthly or Less Hx Substance Use: No Preferred Language: Korean Visual Impairment: No Limitations Hearing Ability: Normal Curtain Stretcher Required: No Beliefs That Will Affect Care: None marital status: Current Living Situation: Spouse current occupational status: disabled Feels Safe at Home: Yes Childhood Exposure to Second-Hand Smoke: Yes Dental Care, Regularly: Yes Physical Activity Frequency: 1-2 Times per Week Seatbelt Use: always Sunscreen Use: Yes Assistive Devices: Denture - Upper Review of Systems All systems reviewed & are unremarkable except as noted in HPI & below. Physical Exam On physical examination of the right shoulder, she has about 140 degrees forward elevation 40 degrees of external rotation. She has 4+ out of 5 motion with full can testing in 4-5 motion with external rotation. She is very weak with external rotation.. Constitutional WD/WN, vitals as above Eyes PERRL, conjunctivae normal, anicteric sclerae ENMT external ear and nose normal, oropharynx normal Neck trachea midline, no thyromegaly Respiratory normal respiratory effort Cardiovascular RRR, no murmur, no edema Gastrointestinal (Abdomen) normal bowel sounds, soft, nontender, no hepatosplenomegaly Psychiatric A+Ox3, euthymic affect Results & Data Results & Data Laboratory Results . Diagnostic Findings X-rays of the right shoulder do show moderate osteoarthritis of the glenohumeral joint. There is some osteophyte formation. MRI of the shoulder shows a large posterior bony Bankart lesion and more advanced osteoarthritis of the glenohumeral joint. There is also some fluid that extends around the infraspinatus.. PG Care Time/CCT Total # of Minutes Spent Total Time Spent with Patient: Total time spent is greater than 50% in coordination of care (as documented) at patient's floor/unit and/or counseling patient: Coding Level of Care Code None Diagnoses Osteoarthritis of right shoulder M19.011
[~2021-02-27 08:56] MED LIST changes: -ACET-1256 PO; +ACETAMINOPHEN 500 MG TAB PO SCH; -AMLO5TAB3 PO; -ARMO250T5 PO; +BUPIVACAINE 0.5 % 5 MG/1 ML PF 10ML VIAL ONE; -CALC-393 PO; -CARI350T28 PO; -CHOL1000 PO; -DENO60SO INJ; -DICLTAB4 PO; -ESCI1TAB10 PO; +FAMOTIDINE 20 MG TAB PO SCH; -GABA-113 PO; +GABAPENTIN 600 MG DOSE PO SCH; -HYDR-3983 PO; -HYDR200T5 PO; -HYZ/10015 PO; -LIDO16CR TOP; +LR 15ML/HR IV SCH; +LR 60ML/HR IV SCH; -METHYLPREDNISOLONE INJ; -MULT-506 PO; -NXM/40 PO; -PRAM1TAB52 PO; -RIZA10TA18 PO; +ROPIVACAINE 0.5% HCL/PF 150 MG, BUPIVACAINE 0.75% MPF 20 ML, EPINEPHrine 30MG/30ML (OR ... INFIL SCH; -ROSU20TA PO; -SENN-65 PO; +TRANEXAMIC ACID 1,000 MG **IV Intra-op IV SCH; +TRANEXAMIC ACID 1,000 MG **IV Pre-op IV SCH; -VITB2100 PO; -ZOLP10TA PO; +ceFAZolin 2000MG 2,000 MG/15 ML SYR IV SCH; +dexAMETHasone 4 MG TAB PO SCH
[2021-02-27] MEDS ORDERED: ONDANSETRON INJ 2 MG/ML 2 ML VIAL ONE (09:00)
[2021-02-27] MEDS ORDERED: PROPOFOL IV EMULSION 10 MG/ML 20 ML VIAL IV ONE (09:00)
[2021-02-27] MEDS ORDERED: LIDOCAINE HCL 2% 2 ML VIAL/AMP(20MG/ML) INFIL ONE (09:00)
[2021-02-27] MEDS ORDERED: ROCURONIUM BROMIDE 10 MG/ML 5 ML VIAL IV ONE (09:00)
[2021-02-27] MEDS ORDERED: MIDAZOLAM HCL 1 MG/ML 2ML VIAL ONE (09:00)
[2021-02-27] MEDS ORDERED: fentaNYL citrate 100 MCG/2 ML VIAL ONE (09:00)
--- NOTE | 2021-02-27 09:35 | History & Physical Bridge Note ---
Date of Service February 27, 2021 History & Physical Bridge Note I have examined the patient, reviewed the History & Physical and in the interval since the performance of the History & Physical I have noted the following changes of clinical significance: no changes noted
[2021-02-27] MEDS ORDERED: ORTHO JOINT ANESTHETIC ONE (10:00)
[2021-02-27] MEDS ORDERED: PROMETHAZINE HCL 6.25 MG in SODIUM CHLORIDE 0.9% 50 ML IV PRN (11:02)
[2021-02-27] MEDS ORDERED: ONDANSETRON INJ 2 MG/ML 2 ML VIAL IV PRN ×2 (11:02→14:13)
[2021-02-27] MEDS ORDERED: fentaNYL citrate 100 MCG/2 ML VIAL IV PRN (11:02)
[2021-02-27] MEDS ORDERED: ePHEDrine sulfate 50 MG/ML AMP IV PRN (11:02)
[2021-02-27] MEDS ORDERED: ATROPINE SULFATE 0.1 MG/ML 10ML SYR IV PRN (11:02)
[2021-02-27] MEDS ORDERED: PHENYLEPHRINE 100MCG/ML 5ML SYR ONE (11:44)
--- NOTE | 2021-02-27 12:36 | Operative Report ---
PG Post Operative Report Pre & Post Diagnosis Operation Date: 02/27/21 11:30 Pre-Op Diagnosis: Degenerative Joint Disease Right Shoulder with tendinopathy of the long head of the biceps tendon Post-Op Diagnosis: Degenerative Joint Disease Right Shoulder with tendinopathy of the long head of the biceps tendon I identified the patient and participated in the time-out.: Yes Procedure Operation Date: 02/27/21 11:30 Actual Procedures p Right Reverse Total Shoulder Arthroplasty(Right) with open biceps tenodesis as a distinct and separate procedure (modifier 59)- Luan Lopez DO Surgeon Luan Lopez DO Bank Appraiser Luan Eubanks PAC Estimated Blood Loss 10 Findings Consistent with Post-Op Diagnosis Specimens Right humeral head Complications none Disposition Disposition: Recovery Room Indications Azucena is a pleasant 65-year-old female whose been dealing with right shoulder pain since a fall about a year ago. MRI and clinical examination are diagnostic for osteoarthritis with a posterior bony Bankart lesion. After failing a year conservative treatment, she elected proceed with a right reverse shoulder arthroplasty. Description of Procedure A CPT code modifier 59: The long head of the biceps tendon was enlarged and inflamed consistent with tendinopathy. A tenodesis was opted. This was a separate and distinct portion of the procedure. For these reasons, a CPT code modifier 59 will be added to this case. Implants used: I used a [employer]omet Comprehensive reverse total shoulder arthroplasty system with a size 11 press fit micro humeral stem, a +3 offset humeral tray and a standard humeral bearing, a 25 mm small augment baseplate with a 6.5 mm central screw and superior and inferior locking screws, and a size 40 mm eccentric glenosphere. Meghan arrived at [facility] for the above procedure. She was seen in the preoperative holding area and the operative extremity was identified and signed. She was given a preoperative antibiotic, TXA, and an interscalene nerve block. She was taken back to the operating room, laid on table in supine position, and put under general anesthesia. She was then put into the beachchair position. The shoulder was then prepped and draped in sterile fashion. A timeout was done and the patient and the operative extremity was properly identified. A deltopectoral approach was used. Dissection was taken down through the fascia and the deltoid was retracted laterally and the conjoined tendon was retracted medially. The anterior shoulder was exposed. The biceps groove was opened up and the biceps tendon was examined extensively. The biceps tendon demonstrated enlargement and inflammatory changes consistent with longstanding inflammation in the context of osteoarthritis and cuff arthropathy. The long head of the biceps tendon was then tenodesed to the upper border of the pectoralis major. This was a separate and distinct portion of the procedure. The subscapularis was then directly released off the lesser tuberosity with a peel technique. The inferior capsule was released and the humeral head was dislocated. A canal finding reamer was sent down the center of the humeral canal. Sequential reaming up to a size 11 reamer was done. Off that reamer, a proximal humeral resection guide was placed. The proximal humerus was resected at 135 of inclination and 25 of retroversion. Osteophytes were then removed and the glenoid was exposed. Time was spent doing a complete capsular and labral release. The glenoid guide was then placed in the inferior aspect of the glenoid. A 3.2 mm Steinmann pin was then placed into the glenoid vault at 10 of inclination. The glenoid baseplate was then reamed. The final size 25 mm small augment baseplate was then impacted in the place. A 6.5 mm central screw was then placed followed by superior and inferior locking screws. A 40 mm eccentric glenosphere was then impacted into place. Surrounding soft tissues were then injected with 100 cc an orthopedic pain control cocktail. The proximal humerus was then exposed. Sequential broaching of the humerus up to a size 11 broach was done. Off that broach a +3 offset humeral tray was trialed. The shoulder was then reduced, brought through a full range of motion, and felt to be stable. The shoulder was then dislocated and the broach was removed. The final size 11 micro press-fit humeral stem was then impacted into place. A standard humeral bearing was then snapped onto a +3 offset humeral tray. The humeral tray was then impacted onto the humeral stem. The shoulder was once again reduced, brought through a full range of motion, and felt to be stable. The subscapularis was then tenodesed back to the lesser tuberosity with transosseous FiberWire sutures and side to side sutures with the arm in 45 of external rotation. A dilute betadyne lavage was then done for 3 minutes. The joint was then irrigated with normal saline solution. Hemostasis was obtained. The interval was closed with 2-0 Vicryl suture. The skin was then closed with 2-0 Vicryl and suki. A Silverlon dressing was placed and the arm was rested in a regular arm sling. She was then extubated and transferred to a hospital bed. She taken to the postanesthesia care unit in stable condition. She tolerated the procedure well. Luan Eubanks PA-C, was present for the entire procedure. He was critical for patient positioning, prepping, draping, retraction exposure, wound closure and application of sterile dressing. I attest to the content of the Intraoperative Record and any orders documented therein. Any exceptions are noted below.
--- NOTE | 2021-02-27 13:56 | XRay Report ---
XR shoulder RT min 2V routine CLINICAL HISTORY: Post shoulder surgery COMPARISON: None. DISCUSSION: There are postsurgical changes of a reverse total right shoulder arthroplasty. There is n o dislocation. Overlying skin suki are visualized. There are atelectatic changes during lung base. IMPRESSION: Postsurgical changes of a reverse total right shoulder arthroplasty ACT 112: Negative or not required by law. Electronically signed by: Peter Chairez M.D. 02/27/2021 1:54 PM
[2021-02-27] MEDS ORDERED: FUROSEMIDE 20 MG TAB PO PRN (14:13)
[2021-02-27] MEDS ORDERED: NALOXONE HCL 0.4 MG/1 ML VIAL/CARP IV PRN (14:13)
[2021-02-27] MEDS ORDERED: bisacodyL 10 MG SUPP PR PRN (14:13)
[2021-02-27] MEDS ORDERED: HYDROmorphone INJ 0.5 MG/0.5 ML SYR IV PRN (14:13)
[2021-02-27] MEDS ORDERED: METOCLOPRAMIDE HCL INJ 5 MG/ML 2 ML VIAL IV PRN (14:13)
[2021-02-27] MEDS ORDERED: MAGNESIUM HYDROXIDE SUSP 30 ML UDC PO PRN (14:13)
[2021-02-27] MEDS ORDERED: RIZATRIPTAN BENZOATE 10 MG TAB PO PRN (14:13)
[2021-02-27] MEDS ORDERED: SODIUM CHLORIDE 0.9% 1000ML 1,000 ML IV SCH (14:13)
[2021-02-27] MEDS ORDERED: ACETAMINOPHEN 500 MG TAB PO STA (14:21)
[2021-02-27] MEDS ORDERED: GABAPENTIN 300 MG CAP PO STA (14:25)
--- NOTE | 2021-02-27 14:38 | Anesthesiology Progress Note ---
Date of Service February 27, 2021 Anesthesia Post Procedure Vital Signs Vital Signs: Temp Pulse Pulse Resp BP Pulse Ox 02/27/21 14:27 88 16 112/77 94 02/27/21 13:55 36.7 C 93 H 16 112/69 94 02/27/21 13:35 36.7 C 90 15 117/74 94 02/27/21 13:25 90 14 119/75 95 02/27/21 13:15 92 H 16 133/82 95 02/27/21 13:05 93 H 16 110/73 97 02/27/21 12:58 36.3 C L 64 16 103/70 97 02/27/21 09:42 36.8 C 88 20 130/83 95 Pain Intensity Right Shoulder: Pain Intensity: 5 Transfer of Care Handoff Completed per policy Notes Mental Status: alert / awake / arousable Patient Amnestic to Procedure: Yes Nausea / Vomiting: adequately controlled Pain: adequately controlled Airway Patency, RR, SpO2: stable & adequate BP & HR: stable & adequate Hydration State: stable & adequate Anesthetic Complications: no major complications apparent Notes: block working well in pacu
[2021-02-27] MEDS: ceFAZolin 2000MG 2,000 MG/15 ML SYR IV SCH (17:33)
[2021-02-27] MEDS: KETOROLAC 30 MG/ML VIAL IV SCH ×2 (17:33→23:48)
[2021-02-27] MEDS: oxyCODONE HCL IR 5 MG TAB (IMMEDIATE RELEASE) PO PRN (19:08)
[2021-02-27] MEDS: DOCUSATE SODIUM 100 MG CAP PO SCH (20:54)
[2021-02-27] MEDS: GABAPENTIN 300 MG CAP PO SCH (20:55)
[2021-02-27] MEDS: sulfaSALAzine 500 MG TABLET PO SCH (20:56)
[2021-02-27] MEDS: ACETAMINOPHEN 500 MG TAB PO SCH (21:00)
[2021-02-27] MEDS ORDERED: PRAMIPEXOLE DIHYDROCHLO 0.5 MG TAB PO SCH (21:00)
[2021-02-27] MEDS ORDERED: ZOLPIDEM TARTRATE 10 MG TAB PO SCH (21:00)
[2021-02-27] MEDS ORDERED: SENNA 8.6 MG TAB PO SCH (21:00)
[2021-02-28] MEDS: ceFAZolin 2000MG 2,000 MG/15 ML SYR IV SCH (02:34)
[2021-02-28] MEDS: ACETAMINOPHEN 500 MG TAB PO SCH (05:27)
[2021-02-28] MEDS: KETOROLAC 30 MG/ML VIAL IV SCH (05:27)
[2021-02-28] MEDS: oxyCODONE HCL IR 5 MG TAB (IMMEDIATE RELEASE) PO PRN ×2 (05:29→09:35)
--- NOTE | 2021-02-28 07:57 | Orthopedic Progress Note ---
Date of Service February 28, 2021 Assessment & Plan (1) Status post reverse total replacement of right shoulder: Overall she is doing very well. She is not any much pain in the right shoulder. She will be seen by physical therapy today for ambulation and range of motion exercises. She can be discharged home later today. She will follow- up with orthopedics in 2 weeks. Justa Christianson was seen and examined at bedside this morning. Overall she is doing very well. She is not having any pain in the right shoulder. She was able to get some sleep last night. She has no complaints.. Review of Systems All systems reviewed & are unremarkable except as noted in HPI & below. Physical Exam On physical examination of the right shoulder, the dressing is clean and dry. Her radial, median, and ulnar nerves are checked intact at her wrist. Her axillary nerve was not checked yet. She is wearing her sling as instructed.. Results & Data Results & Data Laboratory Results . Diagnostic Findings Postoperative x-rays of the right shoulder show the prosthesis to be in anatomic alignment without any evidence of fracture, dislocation, or loosening. PG Care Time/CCT Total # of Minutes Spent Total Time Spent with Patient: Total time spent is greater than 50% in coordination of care (as documented) at patient's floor/unit and/or counseling patient: Coding Level of Care Code 96586 Post Operative Follow-Up Diagnoses Status post reverse total replacement of right shoulder Z96.611
--- NOTE | 2021-02-28 07:58 | Discharge Summary ---
Date of Service February 28, 2021 Admission HPI (Per Admitting) Azucena is a pleasant 65-year-old female who fell on her outstretched arm over a year ago. She has been having significant shoulder pain since. X-rays did show some arthritis. MRI showed worse arthritis and a large posterior bony Bankart lesion. She had extensive fluid extending into the infraspinatus and atrophy of her infraspinatus muscle belly. After failing over a year conservative treatment, she has elected proceed with a right reverse shoulder arthroplasty.. Admission Exam (Per Admitting) On physical examination of the right shoulder, she has about 140 degrees forward elevation 40 degrees of external rotation. She has 4+ out of 5 motion with full can testing in 4-5 motion with external rotation. She is very weak with external rotation.. Principal Diagnosis Same as "Discharge Diagnosis" noted below under Discharge Instructions. Discharge Exam On physical examination of the right shoulder, the dressing is clean and dry. Her radial, median, and ulnar nerves are checked intact at her wrist. Her axillary nerve was not checked yet. She is wearing her sling as instructed.. Discharge Data Procedures Performed Operation Date: 02/27/21 11:30 Actual Procedures p Right Reverse Total Shoulder Arthroplasty(Right) - Luan Lopez DO Ordered Studies 02/27/21 05:00 US - OR guided needle placemen Routine Hospital Course (1) Status post reverse total replacement of right shoulder: On February 27, 2021 Meghan arrived at [facility] and underwent a right reverse shoulder replacement without complication. She had a general anesthetic and a right interscalene nerve block. Postoperatively she was placed in a sling and transferred to the general orthopedic floors. Her hospital course was uneventful. On postop day #1 her vital signs were stable and her pain was well controlled. She was able to participate well with physical therapy doing ambulation and range of motion exercises. She was then discharged home. She will follow-up with orthopedics in 2 weeks. PG Care Time/CCT Total # of Minutes Spent Total Time Spent with Patient: Total time spent is greater than 50% in coordination of care (as documented) at patient's floor/unit and/or counseling patient: Discharge Plan Discharge Items Patient Disposition: Home - Home Health Services Reason For Visit: DJD Right Shoulder Discharge Diagnosis: Right shoulder replacement Activity: As commented below Non-emergency contact: Surgeon Call non-emergency contact if: your wound has increased redness and your wound has increased drainage Follow-up/Referrals: Latanya Tyler MD [Primary Care Provider] - Diet: Regular Addtl Attending Provider Instructions: Activity and Therapy Recommendations: * If you are using [facility] then therapy will be provided at your home until they feel you have accomplished all of your goals. * If you are using [facility] then Physical Therapy will be provided until they feel you are ready to start Outpatient Physical Therapy. * If you are not using home therapy then Outpatient Physical Therapy should start about 3-5 days from your day of surgery. Therapy will last about 8-12 weeks * Wear your sling for 3 weeks, unless otherwise instructed. You may remove your sling to shower and to dress, but otherwise, you should be in your sling at all times, including while sleeping * The shoulder replacement is very stable and you can use your hand while in the sling * You were shown a series of exercises in the hospital. Do these exercises daily including the exercises you were shown in physical therapy. Medications: * Narcotic You will likely be sent home from the hospital with a prescription for the narcotic pain medication that worked best throughout your stay. * Other medications may be prescribed for specific circumstances. If you have any questions, please call the office at . * Resume previous home medications unless otherwise instructed Dressing Care: Leave the Silverlon dressing in place for 7 days. After 7 days you may remove the dressing. If the incision is not draining then you may leave the suki open to air. If there is a little bit of drainage or if the suki are getting stuck on your clothing then cover the incision with a dry dressing. The suki will be removed at your 2 week follow-up appointment. Showering: You may shower with the Silverlon dressing in place. Do not let the shower spray hit the dressing directly. Pat the Silverlon dressing dry. If the dressing becomes wet underneath, then simply remove the dressing. Keep the incision dry until you are 7 days out from the day of surgery. After 7 days you may remove the Silverlon dressing and shower with the suki exposed. Let soapy water run over the suki and pat them dry. Do not scrub or soak the incision. Things To Watch For: * Drainage from the incision site that occurs more than one week after your surgery. * Increased redness at the incision site. * Fever above 102 degrees Fahrenheit. * Unusual chest pain or shortness of breath. * Call [facility] at with any of the above problems Follow-Up Visit: Follow-up with Dr. Lopez's PA (Luan Eubanks) 2-3 weeks after your day of surgery. He will remove your suki and answer any questions. If you have any additional questions or concerns, Dr Lopez is usually in the office at the same time and will be available An appointment was probably scheduled when you signed-up for surgery in the office. If you have any questions call More detailed instructions as well as Frequently Asked Questions were provided in a folder by our office when you signed-up for surgery. Please review these instructions when you get home. If you have any further questions or concerns, please feel free to call the office at [phone] Pending Studies at Discharge: No Stand-Alone Forms: My [facility], Smoking Cessation Medications and DC Order Prescriptions: New oxycodone 5 mg Tablet 5 mg PO Q4H PRN (Reason: pain) Qty: 30 RF: 0 Continued amitriptyline 10 mg tablet 10 mg PO DAILY Qty: 90 RF: 1 rosuvastatin 20 mg tablet 20 mg PO DAILY Qty: 90 RF: 1 hydrochlorothiazide 25 mg tablet 25 mg PO DAILY Qty: 90 RF: 1 amlodipine 5 mg tablet 5 mg PO DAILY Qty: 90 RF: 1 omeprazole 40 mg capsule,delayed release(DR/EC) 40 mg PO DAILY Qty: 90 RF: 1 Movantik 12.5 mg tablet 12.5 mg PO QAM Qty: 90 RF: 1 bupropion HCl 150 mg tablet extended release 24 hr 150 mg PO DAILY Qty: 90 RF: 1 liothyronine 25 mcg tablet 25 mcg PO DAILY Qty: 90 RF: 1 losartan 100 mg tablet 100 mg PO DAILY Qty: 90 RF: 1 furosemide 20 mg tablet 20 mg PO QAM PRN (Reason: edema) Qty: 90 RF: 1 rizatriptan 10 mg tablet 10 mg PO .COMPLEX Qty: 20 RF: 1 varicella-zoster gE vac,2 of 2 50 mcg suspension for reconstitution IM .Administer 0.5 ml IM Qty: 0.5 RF: 0 gabapentin 300 mg capsule 300 mg PO TID Qty: 90 RF: 0 zolpidem 10 mg tablet 10 mg PO HS RF: 0 Caltrate + D3 Plus Minerals 300 mg-800 unit -25 mg-0.5 mg tablet 1 tab PO BID RF: 0 multivitamin [Daily Multi-Vitamin] tablet 1 tab PO QAM RF: 0 morphine 30 mg capsule,extend.release pellets 30 mg PO Q12H PRN (Reason: Pain) RF: 0 Prolia 60 mg/mL syringe 60 mg SQ Q6MO RF: 0 pramipexole 0.25 mg tablet 0.5 mg PO HS RF: 0 sulfasalazine [Azulfidine] 500 mg tablet 500 mg PO BID RF: 0 mirabegron 50 mg tablet extended release 24 hr 50 mg PO DAILY Qty: 90 RF: 3 tramadol 50 mg tablet 50 mg PO Q6H PRN (Reason: pain) Qty: 30 RF: 0 cyclobenzaprine 10 mg Tablet 10 mg PO TID RF: 0 leflunomide 10 mg Tablet 10 mg PO QAM RF: 0 diflunisal 500 mg Tablet 500 mg PO BID RF: 0 Discharge Orders: Discharge Order (Routine); Ordered 02/28/21 Ordered By: Luan Lopez Admission Data Admit Date/Time: 02/27/21 12:59 Attending Provider: Luan Lopez Admit Provider: Luan Lopez Primary Care Provider: Latanya Tyler
[2021-02-28] MEDS ORDERED: dexAMETHasone 4 MG TAB PO SCH (08:00)
[2021-02-28] MEDS: sulfaSALAzine 500 MG TABLET PO SCH (08:07)
[2021-02-28] MEDS: GABAPENTIN 300 MG CAP PO SCH (08:07)
[2021-02-28] MEDS: DOCUSATE SODIUM 100 MG CAP PO SCH (08:07)
[2021-02-28] MEDS ORDERED: MIRABEGRON ER 25 MG TAB PO SCH (09:00)
[2021-02-28] MEDS ORDERED: buPROPion XL 150 MG TABCR PO SCH (09:00)
[2021-02-28] MEDS ORDERED: ROSUVASTATIN CALCIUM 20 MG TAB PO SCH (09:00)
[2021-02-28] MEDS ORDERED: hydroCHLOROthiazide 25 MG TAB PO SCH (09:00)
[2021-02-28] MEDS ORDERED: LOSARTAN POTASSIUM 50 MG TAB PO SCH (09:00)
[2021-02-28] MEDS ORDERED: amLODIPine BESYLATE 5 MG TAB PO SCH (09:00)
[2021-02-28] MEDS ORDERED: LEFLUNOMIDE 10 MG TAB PO SCH (09:00)
[2021-02-28] MEDS ORDERED: AMITRIPTYLINE HCL 10 MG TAB PO SCH (09:00)
[2021-02-28] MEDS ORDERED: MULTIVITAMIN TAB PO SCH (09:00)
[2021-02-28] MEDS ORDERED: LIOTHYRONINE SODIUM 25 MCG TAB PO SCH (09:00)
== END 2021-02-28 11:30 | disposition home health service (06) ==
LOC: ASU 08:56 → 3E 12:59 → INTOOBSV 12:59

== ENCOUNTER 2022-12-24 05:41 | Observation (INO) ==
--- NOTE | 2022-11-30 09:20 | PAT Medication Instructions ---
Medication Instructions Date of Service November 30, 2022 Home Medications Medication Instructions Recorded amlodipine 5 mg tablet 5 mg PO QAM #90 tabs 03/04/22 omeprazole 40 mg capsule,delayed 40 mg PO QAM #90 caps 03/04/22 release walker (Ultra-Light Rollator misc) #1 ea 05/11/22 hydrochlorothiazide 25 mg tablet 25 mg PO QAM #90 tabs 06/23/22 losartan 100 mg tablet 100 mg PO QAM #90 tabs 07/01/22 amitriptyline 10 mg tablet 10 mg PO HS #90 tabs 07/08/22 furosemide 20 mg tablet 20 mg PO QAM PRN edema #90 tabs 07/08/22 potassium chloride 20 mEq 20 meq PO QAM #90 tabs 07/08/22 tablet,extended release rizatriptan 10 mg tablet 10 mg PO .COMPLEX PRN Migraine 07/08/22 Headache #18 tabs rosuvastatin 20 mg tablet 20 mg PO HS #90 tabs 07/08/22 gabapentin 300 mg capsule 300 mg PO TID multivitamin (Daily Multi-Vitamin tablet) 1 tab PO QAM morphine 30 mg capsule,extended release pellets 30 mg PO Q12H PRN Pain denosumab 60 mg/mL subcutaneous syringe (Prolia) 60 mg subcut Q6MO pramipexole 0.25 mg tablet 0.5 mg PO HS zolpidem 10 mg tablet 10 mg PO HS calcium carb 300 mg-D3 800 unit-mag ox 25 mg-copra sampler 0.5 mg-hansel-Zn tablet (Caltrate + D3 Plus Minerals) 1 tab PO BID sulfasalazine 500 mg tablet (Azulfidine) 500 mg PO BID cyclobenzaprine 10 mg tablet 10 mg PO TID leflunomide 10 mg tablet 10 mg PO QAM amlodipine 5 mg tablet 5 mg PO QAM omeprazole 40 mg capsule,delayed release 40 mg PO QAM hydrochlorothiazide 25 mg tablet 25 mg PO QAM losartan 100 mg tablet 100 mg PO QAM amitriptyline 10 mg tablet 10 mg PO HS furosemide 20 mg tablet 20 mg PO QAM PRN edema potassium chloride 20 mEq tablet,extended release 20 meq PO QAM rizatriptan 10 mg tablet 10 mg PO .COMPLEX PRN Migraine Headache rosuvastatin 20 mg tablet 20 mg PO HS escitalopram oxalate 20 mg tablet 20 mg PO QAM solifenacin 5 mg tablet (Vesicare) 5 mg PO QAM Continue as directed denosumab 60 mg/mL subcutaneous syringe (Prolia) 60 mg subcut Q6MO ASK your prescriber and surgeon sulfasalazine 500 mg tablet (Azulfidine) 500 mg PO BID leflunomide 10 mg tablet 10 mg PO QAM DO NOT take the morning of surgery multivitamin (Daily Multi-Vitamin tablet) 1 tab PO QAM calcium carb 300 mg-D3 800 unit-mag ox 25 mg-copra sampler 0.5 mg-hansel-Zn tablet (Caltrate + D3 Plus Minerals) 1 tab PO BID cyclobenzaprine 10 mg tablet 10 mg PO TID hydrochlorothiazide 25 mg tablet 25 mg PO QAM losartan 100 mg tablet 100 mg PO QAM furosemide 20 mg tablet 20 mg PO QAM PRN edema potassium chloride 20 mEq tablet,extended release 20 meq PO QAM solifenacin 5 mg tablet (Vesicare) 5 mg PO QAM Take morning of surgery With a small sip of water, OTHERWISE NOTHING TO EAT OR DRINK AFTER MIDNIGHT: gabapentin 300 mg capsule 300 mg PO TID morphine 30 mg capsule,extended release pellets 30 mg PO Q12H PRN Pain (if n eeded) amlodipine 5 mg tablet 5 mg PO QAM omeprazole 40 mg capsule,delayed release 40 mg PO QAM rizatriptan 10 mg tablet 10 mg PO .COMPLEX PRN Migraine Headache (if needed) escitalopram oxalate 20 mg tablet 20 mg PO QAM Take evening before surgery gabapentin 300 mg capsule 300 mg PO TID morphine 30 mg capsule,extended release pellets 30 mg PO Q12H PRN Pain (if needed) pramipexole 0.25 mg tablet 0.5 mg PO HS zolpidem 10 mg tablet 10 mg PO HS calcium carb 300 mg-D3 800 unit-mag ox 25 mg-copra sampler 0.5 mg-hansel-Zn tablet (Caltrate + D3 Plus Minerals) 1 tab PO BID cyclobenzaprine 10 mg tablet 10 mg PO TID amitriptyline 10 mg tablet 10 mg PO HS rizatriptan 10 mg tablet 10 mg PO .COMPLEX PRN Migraine Headache (if needed) rosuvastatin 20 mg tablet 20 mg PO HS Other Notes If you have any questions please call us at [phone] or [phone] or [phone] or [phone]
--- NOTE | 2022-12-02 11:51 | Anesthesiology Consultation ---
Date of Service December 02, 2022 Assessment & Plan (1) Encounter for pre-operative examination: Chart Review Chart Review: Acceptable Risk for Surgery and Patient seen in Pre Admission Testing -Due to comorbidities and functional status- patient is NOT a Same Day Joint candidate Per PAT appt on 12/02/22, patient denies any recent travel or large group activities. Pt is vaccinated for Covid. Will leave to surgeon's discretion if pr eop Covid testing needed. Educated on importance of using Covid precautions one week prior to surgery L CTR 02/04/22 at [facility] 02/04/22= Done under MAC Right Reverse TSA 02/27/21= Done under [facility] with LMA #5. Teaching & Discussion Pre-Anesthesia Teaching/Discussion Notes: Instructed NPO after midnight before surgery,except medications with 15 cc of water. Medication instructions provided according to the PAT guidelines. History Surgery Operation Date: 12/24/22 12:45 Proposed Procedures p Left Total Knee Arthroplasty - Luan Lopez, Height/Weight Height: 5 ft 8.5 in Weight: 93.1 kg Allergies Allergy/AdvReac Type Severity Reaction Status Date / Time No Known Allergies Allergy Verified 11/29/22 15:16 Medications Home Medications Medication Instructions Recorded Confirmed Last Taken gabapentin 300 mg capsule 300 mg PO TID #90 caps 04/05/19 11/29/22 02/27/21 06:00 multivitamin (Daily Multi-Vitamin 1 tab PO QAM 04/05/19 11/29/22 02/26/21 06:00 tablet) morphine 30 mg capsule,extended 30 mg PO Q12H PRN Pain 04/12/19 11/29/22 Unknown release pellets denosumab 60 mg/mL subcutaneous 60 mg subcut Q6MO 10/23/19 11/29/22 Unknown syringe (Prolia) pramipexole 0.25 mg tablet 0.5 mg PO HS 10/23/19 11/29/22 02/26/21 21:00 zolpidem 10 mg tablet 10 mg PO HS 10/23/19 11/29/22 02/26/21 21:00 calcium carb 300 mg-D3 800 1 tab PO BID 05/27/20 11/29/22 02/26/21 21:00 unit-mag ox 25 mg-cop winder 0.5 mg-hansel-Zn tablet (Caltrate + D3 Plus Minerals) sulfasalazine 500 mg tablet 500 mg PO BID 07/29/20 11/29/22 02/26/21 23:00 (Azulfidine) cyclobenzaprine 10 mg tablet 10 mg PO TID 01/14/21 11/29/22 02/26/21 21:00 leflunomide 10 mg tablet 10 mg PO QAM 01/14/21 11/29/22 02/26/21 06:00 amlodipine 5 mg tablet 5 mg PO QAM #90 tabs 03/04/22 11/29/22 Unknown walker (Ultra-Light Rollator misc) #1 ea 05/11/22 11/05/22 Unknown hydrochlorothiazide 25 mg tablet 25 mg PO QAM #90 tabs 06/23/22 11/29/22 Unknown losartan 100 mg tablet 100 mg PO QAM #90 tabs 07/01/22 11/29/22 Unknown amitriptyline 10 mg tablet 10 mg PO HS #90 tabs 07/08/22 11/29/22 Unknown furosemide 20 mg tablet 20 mg PO QAM PRN edema #90 tabs 07/08/22 11/29/22 Unknown potassium chloride 20 mEq 20 meq PO QAM #90 tabs 07/08/22 11/29/22 Unknown tablet,extended release rizatriptan 10 mg tablet 10 mg PO .COMPLEX PRN Migraine 07/08/22 11/29/22 Unknown Headache #18 tabs rosuvastatin 20 mg tablet 20 mg PO HS #90 tabs 07/08/22 11/29/22 Unknown escitalopram oxalate 20 mg tablet 20 mg PO QAM 11/29/22 11/29/22 Unknown solifenacin 5 mg tablet (Vesicare) 5 mg PO QAM 11/29/22 11/29/22 Unknown omeprazole 40 mg capsule,delayed 40 mg PO QAM #90 caps 11/30/22 Unknown release Past Medical History Medical History (Updated 12/02/22 @ 15:23 by Nyla Pedraza PA-C) AVN (avascular necrosis of bone) Reason for upcoming L TKA Benign hypertension Constipation Intermittent/chronic Degenerative disc disease Lumbar area Depression with anxiety Fibromyalgia GERD (gastroesophageal reflux disease) Well controlled and stable History of COVID-25 Jun 2022 > not hospitalized - symptoms resolved Hyperhidrosis Follows with PCP Hyperlipidemia Hypothyroidism Insomnia Migraine Neuropathy feet Overactive bladder Restless leg syndrome Rheumatoid arthritis Follows with rheum- Dr. Onofre in [place] Stable per patient Exercise / Class Metabolic Activity III < 4 Walking/Shop/Light housework (no chest pain or SOB with flat surface ambulation- uses cane- limited activity due to knee pain x six months ) Past Family History Family History Brother Myocardial infarction Family history of diabetes mellitus Mother Uterine cancer Sister Family history of diabetes mellitus Other No family history of adverse response to anesthesia Denies family history of Ovarian cancer Prostate cancer Breast cancer Colorectal cancer Past Surgical History Surgical History Fusion of spine Lumbar H/O colonoscopy H/O total hysterectomy History of cardiac cath 25 yrs ago > no stents History of carpal tunnel release bilat History of cholecystectomy History of dilatation and curettage Multiple History of tonsillectomy and adenoidectomy History of tooth extraction History of total shoulder replacement right reverse Past Anesthesia History No Hx of Anesthesia Complications and No Family Hx of Anesthesia Complications History of PONV No Hx of PONV and No Hx of Motion Sickness Social History Smoking Status: Never smoker Do You Dip or Chew Tobacco: No Hx Alcohol Use: Yes alcohol intake frequency: holidays/special occasions only Hx Substance Use: No substance use type: does not use Review of Systems Patient denies chest pain, shortness of breath at rest, cough, wheezing, palpitations. No hx of seizures, stroke, HI, apnea/snoring. No hx of blood clots or blood transfusions Physical Exam Vital Signs VITALS BP 116/83 P 86 TEMP 98.7 SP02 94% RESP 16 Constitutional no acute distress ENMT Mouth: no TMJ clicking Thyromental Distance: < 3.5 Finger Breadths (2.5) Mallampati Class: I Full upper denture Missing bottom side teeth/molars Neck neck extension not limited Respiratory normal respiratory effort; no respiratory distress Auscultation: lungs clear to auscultation bilaterally; no wheezes Cardiovascular Rate/Rhythm: regular rate and regular rhythm Heart Sounds: no murmur Vessels: no carotid bruit Extra beat occ Musculoskeletal Spine: no pain with cervical ROM Extremities: extremities normal to inspection Psychiatric Orientation: alert Lab Results Anesthesia Preop Results Results Anesthesia Widget: WBC 7.66 K/ul (4.8-10.8) 12/02/22 Hgb 13.9 g/dl (12.0-16.0) 12/02/22 Hct 40.8 % (37.0-47.0) 12/02/22 Plt 263 K/uL (130-400) 12/02/22 Na 139 mmol/L (136-145) 12/02/22 K 4.1 mmol/L (3.5-5.1) 12/02/22 Cl 104 mmol/L (98-107) 12/02/22 CO2 28 mmol/L (21-32) 12/02/22 BUN 10 mg/dl (6-23) 12/02/22 Creat 0.72 mg/dl (0.6-1.2) 12/02/22 Glucose Level 102 mg/dl (70-99(Fasting)) H 12/02/22 PT 10.8 Seconds (9.0-12.0) 12/02/22 PTT 25.5 Seconds (21.0-31.0) 12/02/22 INR 1.0 (0.9-1.1) 12/02/22 Blood Type A Positive 12/02/22 Antibody Screen NEGATIVE 12/02/22 Testing Electrocardiogram Date: 12/02/22 Sinus rhythm with PACs at 80 bpm Low voltage QRS axis When compared to EKG from January- PACs are now present, nonspecific T wave abnormality now evident in lateral leads per cardio Chest X-Ray Date: 12/02/22 Findings: + NAD FINDINGS: Right shoulder arthroplasty and cholecystectomy clips are incidentally noted. Lung volumes are normal. Lungs are clear. There is no pneumothorax or pleural effusion. Mild cardiomegaly is unchanged. Mediastinal contours are norm al. There is no evidence for pulmonary edema. Cervical Spine Date: 12/02/22 No acute fracture or subluxation. Degenerative changes as above include moderate C6-C7 intervertebral disc space narrowing. COVID-19 Risk Screen Screening Information COVID-19 Screen Date: 12/02/22 Exposure 21 Days Family/Household +COVID Last 21 Days: No Exposure 10 Days Any COVID Exposure Last 10 Days: No Symptoms Last 10 Days Experienced COVID Sx Last 10 Days: No + COVID 0-90 Days COVID + in Last 0-90 Days: No Risk Plan COVID Risk Plan: No Risk Identified Patient Education COVID Preop Screening Education Complete: Yes
[2022-12-24] MEDS ORDERED: TRANEXAMIC ACID 1,000 MG **IV Intra-op IV SCH (06:00)
[2022-12-24] MEDS ORDERED: GABAPENTIN 300 MG CAP PO SCH (06:00)
[2022-12-24] MEDS ORDERED: LR 60ML/HR IV SCH (06:00)
[2022-12-24] MEDS ORDERED: FAMOTIDINE 20 MG TAB PO SCH (06:00)
[2022-12-24] MEDS ORDERED: ceFAZolin 2000MG 2,000 MG/15 ML SYR IV SCH (06:00)
[2022-12-24] MEDS ORDERED: LR 500ML BOLUS, THEN 15ML/HR IV SCH (06:00)
[2022-12-24] MEDS ORDERED: ORTHO JOINT MIX INFIL SCH (06:00)
[2022-12-24] MEDS ORDERED: dexAMETHasone 4 MG TAB PO SCH (06:00)
[2022-12-24] MEDS ORDERED: ACETAMINOPHEN 500 MG TAB PO SCH (06:00)
[2022-12-24] MEDS ORDERED: TRANEXAMIC ACID 1,000 MG **IV Pre-op IV SCH (06:00)
--- NOTE | 2022-12-24 06:22 | History & Physical Bridge Note ---
Date of Service December 24, 2022 History & Physical Bridge Note I have examined the patient, reviewed the History & Physical and in the interval since the performance of the History & Physical I have noted the following changes of clinical significance: no changes noted
[2022-12-24] MEDS ORDERED: BUPIVACAINE 0.5 % 5 MG/1 ML PF 10ML VIAL ONE (06:26)
[2022-12-24] MEDS ORDERED: ROPIVACAINE 0.5% 5 MG/ML 30 ML VIAL ONE (06:26)
[2022-12-24] MEDS ORDERED: MIDAZOLAM HCL 1 MG/ML 2ML VIAL ONE (07:06)
[2022-12-24] MEDS ORDERED: fentaNYL citrate 100 MCG/2 ML VIAL ONE (07:06)
[2022-12-24] MEDS ORDERED: PROPOFOL IV EMULSION 10 MG/ML 20 ML VIAL IV ONE (07:07)
[2022-12-24] MEDS ORDERED: ORTHO JOINT ANESTHETIC ONE (07:21)
[2022-12-24] MEDS ORDERED: ATROPINE SULFATE 0.1 MG/ML 10ML SYR IV PRN (07:47)
[2022-12-24] MEDS ORDERED: ePHEDrine sulfate 50 MG/ML AMP IV PRN (07:47)
[2022-12-24] MEDS ORDERED: fentaNYL citrate 100 MCG/2 ML VIAL IV PRN (07:47)
[2022-12-24] MEDS ORDERED: PROMETHAZINE HCL 12.5 MG in SODIUM CHLORIDE 0.9% 50 ML IV PRN (07:47)
[2022-12-24] MEDS ORDERED: ONDANSETRON INJ 2 MG/ML 2 ML VIAL IV PRN ×2 (07:47→10:49)
[2022-12-24] MEDS ORDERED: ePHEDrine sulfate 50 MG/ML AMP ONE (08:26)
[2022-12-24] MEDS ORDERED: PHENYLEPHRINE HCL 10 MG/ML VIAL ONE (08:26)
--- NOTE | 2022-12-24 09:25 | Operative Report ---
PG Post Operative Report Pre & Post Diagnosis Operation Date: 12/24/22 08:10 Pre-Op Diagnosis: Left Knee Degenerative Joint Disease Post-Op Diagnosis: Left Knee Degenerative Joint Disease I identified the patient and participated in the time-out.: Yes Procedure Operation Date: 12/24/22 08:10 Actual Procedures p Left Total Knee Arthroplasty(Left) - Luan Lopez DO Surgeon Luan Lopez DO Chief Controller Tower Luan Eubanks PA-C Estimated Blood Loss 20 Findings Consistent with Post-Op Diagnosis Specimens Left femoral and tibial bone Description of Procedure Implants used: I used a [employer]blmar[employer] Persona total knee arthroplasty system with a size 9 narrow femur, D tibia, 31 oval patella, and a size 11 medial congruent polyethylene bearing. All components were cemented in place with Biomet cement. Meghan arrived [facility] for the above procedure. She was seen in the preoperative holding area and the operative extremity was identified and signed. She was given a preoperative antibiotic, TXA, a spinal anesthetic and an adductor nerve block. She was taken back to the operating room and laid on the table in supine position. She was given basic sedation. The operative knee was then prepped and draped in sterile fashion. A timeout was done, and the patient and the operative extremity was properly identified. A midline incision was made directly over the patella. Dissection was taken down to the extensor mechanism. A midvastus arthrotomy was used. The medial retinaculum was released and the fat pad was mostly excised. The knee was flexed and the ACL, PCL, and meniscus were removed. A drill was sent down the center of the femoral canal followed by an intramedullary malachi. Off that malachi a distal femoral cutting block was placed. 9 mm was resected off the distal femur at 5 of valgus. A posterior referencing AP sizing guide was then placed on the distal femur. The femur measured to be a size 9. 2 drill holes were placed in 3 of external rotation. A 4-in-1 cutting block was then impacted into place. Anterior, posterior, and chamfer cuts were then made. The proximal tibia was then exposed. An external tibial alignment guide was placed. A tibial cut guide was then anchored in place and the proximal tibia was then resected. The posterior aspect of the knee was then opened up and any additional meniscus fragments and osteophytes were removed. The tibia measured to be a size D. The tibial plate was then placed in the appropriate rotation and the tibia was drilled and punched. Trial components were then placed. I used a size 11 medial congruent polyethylene insert. The knee was brought through a full range of motion and felt to be stable. The peg holes for the femoral component were then drilled. The patella was then everted and 9 mm was resected off the posterior aspect of the patella. The patella measured to be a size 31 oval. 3 peg holes were then drilled. A trial patella was placed. The knee was once again brought through a full range of motion and felt to be stable. Trial components were then removed. The surrounding soft tissues were injected with 100 cc of an orthopedic pain control cocktail. All components were then cemented into place with Biomet cement. The final polyethylene insert was then snapped into place. Once cement was dry the tourniquet was deflated. Hemostasis was obtained. A dilute betadyne lavage was then done for 3 minutes. The joint was then irrigated with normal saline solution. The midvastus arthrotomy was then closed with #1 Vicryl suture. The skin was closed with 2-0 Vicryl, 3-0V lock suture, and suki. A soft compressive dressing was placed. She was then transferred to a hospital bed and taken to the postanesthesia care unit in stable condition. She tolerated the procedure well. Luan Eubanks PA-C, was present for the entire procedure. He was critical for patient positioning, prepping, draping, retraction exposure, wound closure and application of sterile dressing. I attest to the content of the Intraoperative Record and any orders documented therein. Any exceptions are noted below.
--- NOTE | 2022-12-24 10:35 | XRay Report ---
XR knee LT 1 or 2V routine CLINICAL HISTORY: Postoperative evaluation. COMPARISON: MRI of the left knee September 07, 2022. Knee radiographs November 15, 2022. FINDINGS: Alignment of the total left knee arthroplasty is anatomic. There is no periprosthetic frac ture or unexpected radiopaque foreign body. There are skin suki. IMPRESSION: Expected findings following total left knee arthroplasty. ACT 112: Negative or not required by law. Electronically signed by: Jorge Morton M.D. 12/24/2022 10:33 AM
[2022-12-24] MEDS ORDERED: HYDROmorphone INJ 0.5 MG/0.5 ML SYR IV PRN (10:49)
[2022-12-24] MEDS ORDERED: MAGNESIUM HYDROXIDE SUSP 30 ML UDC PO PRN (10:49)
[2022-12-24] MEDS ORDERED: FUROSEMIDE 20 MG TAB PO PRN (10:49)
[2022-12-24] MEDS ORDERED: METOCLOPRAMIDE HCL INJ 5 MG/ML 2 ML VIAL IV PRN (10:49)
[2022-12-24] MEDS ORDERED: bisacodyL 10 MG SUPP PR PRN (10:49)
[2022-12-24] MEDS ORDERED: NALOXONE HCL 0.4 MG/1 ML VIAL/CARP IV PRN (10:49)
[2022-12-24] MEDS: SODIUM CHLORIDE 0.9% 1000ML 1,000 ML IV SCH ×2 (10:58→22:52)
--- NOTE | 2022-12-24 11:15 | Anesthesiology Progress Note ---
Date of Service December 24, 2022 Anesthesia Post Procedure Vital Signs Vital Signs: Temp Pulse Pulse Resp BP Pulse Ox O2 Del Method 12/24/22 10:49 36.8 C 90 18 135/68 95 Room Air 12/24/22 10:15 88 14 105/64 98 Room Air 12/24/22 10:05 83 14 110/65 99 Oxymask 12/24/22 09:55 37.0 C 89 14 103/61 100 Oxymask 12/24/22 06:05 36.8 C 81 20 154/91 H 95 Room Air O2 Flow Rate 12/24/22 10:49 12/24/22 10:15 12/24/22 10:05 4 12/24/22 09:55 5 12/24/22 06:05 Pain Intensity Left Knee: Pain Intensity: 0 Transfer of Care Handoff Completed per policy Notes Mental Status: alert / awake / arousable and participated in evaluation Nausea / Vomiting: adequately controlled Pain: adequately controlled Airway Patency, RR, SpO2: stable & adequate BP & HR: stable & adequate Hydration State: stable & adequate Neuraxial Anesthesia: was administered and sensory block is resolving Anesthetic Complications: no major complications apparent and Pt Satisfied with anesthetic care
[2022-12-24] MEDS: KETOROLAC 30 MG/ML VIAL IV SCH ×3 (11:46→21:51)
[2022-12-24] MEDS: ACETAMINOPHEN 500 MG TAB PO SCH ×2 (13:10→21:51)
[2022-12-24] MEDS: CYCLOBENZAPRINE HCL 10 MG TAB PO SCH ×2 (13:10→20:40)
[2022-12-24] MEDS: GABAPENTIN 300 MG CAP PO SCH ×2 (13:10→20:41)
[2022-12-24] MEDS: oxyCODONE HCL IR 5 MG TAB (IMMEDIATE RELEASE) PO PRN (16:02)
[2022-12-24] MEDS: ceFAZolin 2000MG 2,000 MG/15 ML SYR IV SCH (16:11)
[2022-12-24] MEDS: ASPIRIN 81 MG ECTAB PO SCH (20:40)
[2022-12-24] MEDS: DOCUSATE SODIUM 100 MG CAP PO SCH (20:41)
[2022-12-24] MEDS: sulfaSALAzine 500 MG TABLET PO SCH (20:42)
[2022-12-24] MEDS ORDERED: SENNA 8.6 MG TAB PO SCH (21:00)
[2022-12-24] MEDS ORDERED: AMITRIPTYLINE HCL 10 MG TAB PO SCH (21:00)
[2022-12-24] MEDS ORDERED: ZOLPIDEM TARTRATE 10 MG TAB PO SCH (21:00)
[2022-12-24] MEDS ORDERED: PRAMIPEXOLE DIHYDROCHLO 0.5 MG TAB PO SCH (21:00)
[2022-12-24] MEDS ORDERED: ROSUVASTATIN CALCIUM 20 MG TAB PO SCH (21:00)
[2022-12-25] MEDS: ceFAZolin 2000MG 2,000 MG/15 ML SYR IV SCH (00:10)
[2022-12-25 01:19] LABS: Basophils # (auto) 0.02 K/uL (0-0.2); Basophils % (auto) 0.2 %; Hematocrit (blood only) 30.1 % (37.0-47.0); Hemoglobin 10.2 g/dl (12.0-16.0); Immature Granulocytes # (auto) 0.05 K/uL (0.01-0.20); Immature Granulocytes % (auto) 0.4 %; Lymphocytes # (auto) 1.58 K/uL (1.2-3.4); Lymphocytes % (auto) 12.7 %; Mean Corpuscular Hemoglobin 31.4 pg (25.0-34.0); Mean Corpuscular Hgb Conc 33.9 g/dL (32.0-36.0); Mean Corpuscular Volume 92.6 fL (80.0-100.0); Mean Platelet Volume 10.6 fL (9.4-12.4); Monocytes # (auto) 0.44 K/uL (0.11-0.59); Monocytes % (auto) 3.5 %; Neutrophils % (auto) 83.2 %; Platelet Count 194 K/uL (130-400); RDW Coefficient of Variation 13.2 % (11.5-14.5); RDW Standard Deviation 45.1 fL (36.4-46.3); Red Blood Count 3.25 M/uL (4.20-5.40); White Blood Count 12.49 K/ul (4.8-10.8)
[2022-12-25 01:35] LABS: Albumin Level 3.6 gm/dl (3.4-5.0); BUN Creatinine Ratio 18.7 (10-20); Calcium 8.5 mg/dl (8.5-10.1); Creatinine Clr Calc Pharmacy 74.9 ml/min; Est GFR (African American) 76.7 ml/min; Est GFR (Non-African American) 66.2 ml/min; Magnesium 1.8 mg/dl (1.7-2.4); Potassium 3.9 mmol/L (3.5-5.1)
[2022-12-25 01:39] LABS: Troponin I High Sensitivity 4.4 pg/ml (0-14)
[2022-12-25] MEDS: KETOROLAC 30 MG/ML VIAL IV SCH (05:11)
[2022-12-25] MEDS: ACETAMINOPHEN 500 MG TAB PO SCH (05:11)
[2022-12-25] MEDS: oxyCODONE HCL IR 5 MG TAB (IMMEDIATE RELEASE) PO PRN (06:30)
--- NOTE | 2022-12-25 07:04 | Orthopedic Progress Note ---
Date of Service December 25, 2022 Assessment & Plan (1) Status post left knee replacement: Overall she is doing well. She is not having much pain in the left knee. She will be seen by physical therapy today for ambulation and range of motion exercises. She is on aspirin for DVT prophylaxis. She can be discharged home later today. She will follow with orthopedics in 2 weeks. Justa Christianson was seen and examined at bedside this morning. Overall she is doing very well. She is not having much pain in the left knee. She has been up and ambulating to the bathroom. She has no complaints.. Review of Systems All systems reviewed & are unremarkable except as noted in HPI & below. Physical Exam Physical examination of the left knee, the dressing is clean and dry. Her leg is out full extension. She has active dorsiflexion plantarflexion of her left ankle.. Results & Data Results & Data Laboratory Results . Diagnostic Findings Postoperative x-rays of the left knee show the prosthesis to be in anatomic alignment without any evidence of fracture, dislocation, or loosening. PG Care Time/CCT Total # of Minutes Spent Total Time Spent with Patient: Total time spent is greater than 50% in coordination of care (as documented) at patient's floor/unit and/or counseling patient: Coding Level of Care Code 28986 Post Operative Follow-Up Diagnoses Status post left knee replacement Z96.652
--- NOTE | 2022-12-25 07:06 | Discharge Summary ---
Date of Service December 25, 2022 Principal Diagnosis Same as "Discharge Diagnosis" noted below under Discharge Instructions. Discharge Exam Physical examination of the left knee, the dressing is clean and dry. Her leg is out full extension. She has active dorsiflexion plantarflexion of her left ankle.. Discharge Data Consultations 12/25/22 00:41 Consult Hospitalist Routine Procedures Performed Operation Date: 12/24/22 08:10 Actual Procedures p Left Total Knee Arthroplasty(Left) - Luan Lopez DO Ordered Studies 12/24/22 05:00 US - OR guided needle placemen Routine Hospital Course (1) Status post left knee replacement: On December 24, 2022 Meghan arrived at [facility] and underwent a left knee replacement without complication. She had a spinal anesthetic. Postoperatively she was started on aspirin for DVT prophylaxis and transferred to the general orthopedic floors. Her hospital course was uneventful. On postop day #1, her vital signs were stable and her pain was well controlled. She was able to participate well with physical therapy doing ambulation and range of motion exercises. She was then discharged home. She will follow-up with orthopedics in 2 weeks. PG Care Time/CCT Total # of Minutes Spent Total Time Spent with Patient: Total time spent is greater than 50% in coordination of care (as documented) at patient's floor/unit and/or counseling patient: Discharge Plan Discharge Items Patient Disposition: Home - Home Health Services Reason For Visit: Left Knee Degenerative Joint Disease Discharge Diagnosis: Left knee replacement Activity: Per Instructions section Non-emergency contact: Surgeon Call non-emergency contact if: your wound has increased redness and your wound has increased drainage Follow-up/Referrals: Latanya Tyler MD [Primary Care Provider] - Diet: Regular Addtl Attending Provider Instructions: Activity and Therapy Recommendations: * If you are using [facility] then therapy will be provided at your home until they feel you have accomplished all of your goals. * If you are using [facility] then Physical Therapy will be provided until they feel you are ready to start Outpatient Physical Therapy. * If you are not using home therapy then Outpatient Physical Therapy should start about 3-5 days from your day of surgery. Therapy will last about 6-10 weeks * It is important not to put a pillow under your knee when you are relaxing or sleeping. It is just as important to make sure you are getting your knee perfectly straight as it is to regain your knee bend. * You were shown a series of exercises in the hospital. Do these exercises three times each day including the exercises you were shown in physical therapy. * Get up and walk several times each day. For the first four weeks, try not to stand or walk for more than one hour at a time. If you do stand or walk for more than one hour, you will not hurt anything, but your leg will likely swell. * As you feel comfortable, you may change from the walker or crutches to a cane and then to independent walking. Medications: * Narcotic You will likely be sent home from the hospital with a prescription for the narcotic pain medication that worked best throughout your stay. * Aspirin Most patients will be required to take Aspirin 81mg twice a day for 6 weeks after surgery. This is obtained [id number] and a prescription is not necessary. * Other medications may be prescribed for specific circumstances. If you have any questions, please call the office at . * Resume previous home medications unless otherwise instructed TEDs/Elastic Stockings: The white elastic stockings help limit swelling and prevent blood clots from forming in your legs.~ The more you wear them, the more they work. Wear them for six weeks. Dressing Care: The dressing can be changed after physical therapy on postop day #1. Daily dry dressing changes for a few days, especially if the incision is still draining some. If the incision is not draining then you may leave the suki open to air. If there is a little bit of drainage or if the suki are getting stuck on your clothing then cover the incision with a dry dressing. The suki will be removed at your 2 week follow-up appointment. Showering: You may shower 5 days from the day of surgery as long as the incision is no longer draining. You may shower with the suki exposed. Let soapy water run over the suki and pat them dry. Do not scrub or soak the incision. Things To Watch For: * Drainage from the incision site that occurs more than one week after your surgery. * Increased redness at the incision site. * Fever above 102 degrees Fahrenheit. * Unusual chest pain or shortness of breath. * Call [facility] at with any of the above problems Follow-Up Visit: Follow-up with Dr. Lopez's PA (Luan Eubanks) 2-3 weeks after your day of surgery. He will remove your suki and answer any questions. If you have any additional questions or concerns, Dr Lopez is usually in the office at the same time and will be available An appointment was probably scheduled when you signed-up for surgery in the office. If you have any questions call Office Instructions: More detailed instructions as well as Frequently Asked Questions were provided in a folder by our office when you signed-up for surgery. Please review these instructions when you get home. If you have any further questions or concerns, please feel free to call the office at [phone] Pending Studies at Discharge: No Stand-Alone Forms: My Experenti, Smoking Cessation Medications and DC Order Prescriptions: New aspirin 81 mg Tablet,Delayed Release (Dr/Ec) 81 mg PO BID 42 Days Qty: 84 0RF oxycodone-acetaminophen 5-325 mg tablet 1 tab PO Q6H PRN (Reason: pain) Qty: 30 0RF Continued amlodipine 5 mg tablet 5 mg PO QAM Qty: 90 0RF hydrochlorothiazide 25 mg tablet 25 mg PO QAM Qty: 90 3RF losartan 100 mg tablet 100 mg PO QAM Qty: 90 3RF Patient Comments: QAM furosemide 20 mg tablet 20 mg PO QAM PRN (Reason: edema) Qty: 90 1RF rosuvastatin 20 mg tablet 20 mg PO HS Qty: 90 3RF Patient Comments: HS amitriptyline 10 mg tablet 10 mg PO HS Qty: 90 3RF Patient Comments: HS potassium chloride 20 mEq tablet extended release 20 meq PO QAM Qty: 90 3RF omeprazole 40 mg capsule,delayed release(DR/EC) 40 mg PO QAM Qty: 90 0RF rizatriptan 10 mg tablet See Rx Instructions .ROUTE .COMPLEX Qty: 18 3RF Dose Instruction: TAKE 1 TABLET BY MOUTH AT ONSET OF MIGRAINE MAY REPEAT EVERY 2 HOURS IF NEEDED MAXIUM OF 3 TABLETS IN 24 HOURS Rx Instructions: TAKE 1 TABLET BY MOUTH AT ONSET OF MIGRAINE MAY REPEAT EVERY 2 HOURS IF NEEDED MAXIUM OF 3 TABLETS IN 24 HOURS gabapentin 300 mg capsule 300 mg PO TID Qty: 90 zolpidem 10 mg tablet 10 mg PO HS Patient Comments: Caltrate + D3 Plus Minerals 300 mg-800 unit -25 mg-0.5 mg tablet 1 tab PO BID multivitamin [Daily Multi-Vitamin] tablet 1 tab PO QAM morphine 30 mg capsule,extend.release pellets 30 mg PO Q12H PRN (Reason: Pain) Prolia 60 mg/mL syringe 60 mg SQ Q6MO pramipexole 0.25 mg tablet 0.5 mg PO HS sulfasalazine [Azulfidine] 500 mg tablet 500 mg PO BID (DME) Ultra-Light Rollator Misc See Rx Instructions .Route Qty: 1 0RF Rx Instructions: As directed escitalopram oxalate 20 mg tablet 20 mg PO QAM solifenacin [Vesicare] 5 mg tablet 5 mg PO QAM cyclobenzaprine 10 mg Tablet 10 mg PO TID leflunomide 10 mg Tablet 10 mg PO QAM Admission Data Admit Date/Time: 12/24/22 09:49 Attending Provider: Luan Lopez Admit Provider: Luan Lopez Primary Care Provider: Latanya Tyler Other Providers: Clemente Loza
[2022-12-25] MEDS ORDERED: dexAMETHasone 4 MG TAB PO SCH (08:00)
[2022-12-25] MEDS: DOCUSATE SODIUM 100 MG CAP PO SCH (08:11)
[2022-12-25] MEDS: CYCLOBENZAPRINE HCL 10 MG TAB PO SCH (08:11)
[2022-12-25] MEDS: ASPIRIN 81 MG ECTAB PO SCH (08:11)
[2022-12-25] MEDS: sulfaSALAzine 500 MG TABLET PO SCH (08:11)
[2022-12-25] MEDS: GABAPENTIN 300 MG CAP PO SCH (08:11)
[2022-12-25] MEDS ORDERED: POTASSIUM CHLORIDE CRTAB 20 MEQ TABCR PO SCH (09:00)
[2022-12-25] MEDS ORDERED: LEFLUNOMIDE 10 MG TAB PO SCH (09:00)
[2022-12-25] MEDS ORDERED: ESCITALOPRAM OXALATE 20 MG TAB PO SCH (09:00)
[2022-12-25] MEDS ORDERED: hydroCHLOROthiazide 25 MG TAB PO SCH (09:00)
[2022-12-25] MEDS ORDERED: amLODIPine BESYLATE 5 MG TAB PO SCH (09:00)
[2022-12-25] MEDS ORDERED: LOSARTAN POTASSIUM 50 MG TAB PO SCH (09:00)
[2022-12-25] MEDS ORDERED: MULTIVITAMIN TAB PO SCH (09:00)
== END 2022-12-25 11:24 | disposition home health service (06) ==
LOC: ASU 05:41 → 3W 05:41

== ENCOUNTER 2023-06-30 09:14 | Observation (INO) ==
--- NOTE | 2023-06-28 15:03 | Anesthesiology Consultation ---
Date of Service June 28, 2023 Assessment & Plan (1) Encounter for pre-operative examination: - Infectious disease screening: Per assessment on 06/28: No known infectious disease contacts or current infectious disease symptoms. - Cardiology visit (04/08/23):"The patient is stable from a cardiovascular standpoint. Review of the EKG performed on March 15 which was interpreted as atrial fibrillation by the computer was actually normal sinus rhythm with frequent PACs and baseline artifact. She does note brief symptoms with her PACs, however, has never noticed sustained palpitations. She was offered a long-term event monitor today, however, she is not interested. She was commended on her walking program. She also demonstrates excellent control of her LDL cholesterol. Suggest she continue risk factor modifications."Follow-up as needed per cardiology. - S/P ORIF Left patella (06/13/23): LMA#4 + PNB at [facility]. No issues noted per post- op anesthesia progress note. Chart Review Chart Review: Acceptable Risk for Surgery and Patient NOT seen in Pre Admission Testing History Surgery Operation Date: 06/30/23 13:00 Proposed Procedures p Left Open Reduction Internal Fixation Patella Fracture - Luan Lopez, Height/Weight Height: 5 ft 8 in Weight: 90.718 kg Allergies Allergy/AdvReac Type Severity Reaction Status Date / Time No Known Allergies Allergy Verified 06/28/23 14:05 Medications Home Medications Medication Instructions Recorded Confirmed Last Taken gabapentin 300 mg capsule 300 mg PO TID #90 caps 04/05/19 06/28/23 06/13/23 07:00 multivitamin (Daily Multi-Vitamin 1 tab PO QAM 04/05/19 06/28/23 06/12/23 07:00 tablet) zolpidem 10 mg tablet 10 mg PO HS 10/23/19 06/28/23 06/12/23 21:00 calcium carb 300 mg-D3 20 mcg-mag 1 tab PO BID 05/27/20 06/28/23 06/12/23 21:00 ox 25 mg-copy center specialist 0.5 [id number] tablet (Caltrate-D3 Plus Minerals) cyclobenzaprine 10 mg tablet 10 mg PO TID 01/14/21 06/28/23 06/12/23 21:00 leflunomide 10 mg tablet 10 mg PO QAM 01/14/21 06/28/2323 07:00 amlodipine 5 mg tablet 5 mg PO QAM #90 tabs 03/04/22 06/28/23 06/13/23 07:00 walker (Ultra-Light Rollator misc) #1 ea 05/11/22 06/13/23 Unknown rosuvastatin 20 mg tablet 20 mg PO HS #90 tabs 07/08/22 06/28/23 06/12/23 21:00 rizatriptan 10 mg tablet See Rx Instructions .Route 12/10/22 06/28/23 03/21/23 .COMPLEX #18 tabs escitalopram oxalate 20 mg tablet 20 mg PO QAM #90 tabs 02/01/23 06/28/23 06/12/23 07:00 nabumetone 750 mg tablet 750 mg PO BID 03/15/23 06/28/23 06/12/23 21:00 potassium chloride 20 mEq 20 meq PO DAILY #90 tabs 05/17/23 06/28/23 06/12/23 07:00 tablet,extended release(part/cryst) (Klor-Con M) oxybutynin chloride 5 mg 5 mg PO DAILY #90 tabs 05/23/23 06/28/23 06/12/23 07:00 tablet,extended release 24 hr zoledronic acid 5 mg/100 mL in 5 ea IV YEARLY 05/24/23 06/28/23 03/23/23 mannitol 5 %-water intravenous piggybck (Reclast) omeprazole 40 mg capsule,delayed 40 mg PO QAM #90 caps 05/25/23 06/28/23 06/13/23 07:00 release amitriptyline 10 mg tablet 10 mg PO HS #90 tabs 06/08/23 06/28/23 06/12/23 21:00 furosemide 20 mg tablet 20 mg PO QAM PRN edema #90 tabs 06/08/23 06/28/23 06/12/23 12:00 hydrochlorothiazide 25 mg tablet 25 mg PO QAM #90 tabs 06/08/23 06/28/23 06/12/23 07:00 losartan 100 mg tablet 100 mg PO QAM #90 tabs 06/08/23 06/28/23 06/13/23 07:00 oxycodone-acetaminophen 5 mg-325 1 tab PO Q6H PRN pain #30 tabs 06/13/23 06/28/23 Unknown mg tablet (Percocet) pramipexole 0.25 mg tablet See Rx Instructions .Route 06/23/23 06/28/23 Unknown .COMPLEX #180 tabs Past Medical History Medical History Constipation Intermittent/chronic Degenerative disc disease Lumbar area Depression with anxiety Fibromyalgia GERD (gastroesophageal reflux disease) Well controlled, stable History of COVID-19 06/2022- not hospitalized, symptoms resolved Hyperhidrosis Follows with PCP Hyperlipidemia Hypertension Hypothyroidism Insomnia Migraine Neuropathy Feet Overactive bladder Palpitations saw Dr Bowman 04/2023 - initially preliminary reading on EKG a fib- cardio reviewed- pt actually in SR with PACs- no further work up needed- patient can follow with cardio PRN per 04/2023 cardio note Patella fracture Restless leg syndrome Rheumatoid arthritis Follows with rheum- Dr. Meenakshi Bautista Stable per patient Past Family History Family History Brother Myocardial infarction Family history of diabetes mellitus Mother Uterine cancer Sister Family history of diabetes mellitus Other No family history of adverse response to anesthesia Denies family history of Ovarian cancer Prostate cancer Breast cancer Colorectal cancer Past Surgical History Surgical History Fusion of spine Lumbar H/O colonoscopy H/O total hysterectomy History of cardiac cath 25 years ago- no stents History of carpal tunnel release R/L History of cholecystectomy History of dilatation and curettage Multiple History of open reduction and internal fixation (ORIF) procedure Left Patella ORIF (05/26/23): Done under [facility] with LMA #4 Ig[facility]; LMA atraumatic Left ORIF Patella (06/13/23 [facility]) History of tonsillectomy and adenoidectomy History of tooth extraction History of total shoulder replacement Right reverse Status post left 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) Social History Smoking Status: Never smoker Do You Dip or Chew Tobacco: No Hx Alcohol Use: Yes alcohol intake frequency: holidays/special occasions only Hx Substance Use: No substance use type: does not use Lab Results Anesthesia Preop Results Results Anesthesia Widget: WBC 7.58 K/ul (4.8-10.8) 06/13/23 Hgb 13.8 g/dl (12.0-16.0) 06/13/23 Hct 41.4 % (37.0-47.0) 06/13/23 Plt 260 K/uL (130-400) 06/13/23 Na 141 mmol/L (136-145) 05/24/23 K 3.8 mmol/L (3.5-5.1) 05/24/23 Cl 105 mmol/L (98-107) 05/24/23 CO2 28 mmol/L (21-32) 05/24/23 BUN 11 mg/dl (6-23) 05/24/23 Creat 0.75 mg/dl (0.6-1.2) 05/24/23 Glucose Level 104 mg/dl (70-99(Fasting)) H 05/24/23 PT 10.7 Seconds (9.0-12.0) 05/24/23 PTT 22.8 Seconds (21.0-31.0) 05/24/23 INR 1.0 (0.9-1.1) 05/24/23 Testing Laboratory Results 05/23/23= UA: Positive nitrite, negative urine leukocyte esterase Electrocardiogram Date: 03/15/23 Atrial fibrillation 89bpm No ST/T wave changes per confirming provider (Per cardio note 04/08/23: "Review of the EKG performed on March 15 which was interpreted as atrial fibrillation by the computer was actually normal sinus rhythm with frequent PACs and baseline artifact.) Chest X-Ray Date: 12/02/22 Findings: + NAD FINDINGS: Right shoulder arthroplasty and cholecystectomy clips are incidentally noted. Lung volumes are normal. Lungs are clear. There is no pneumothorax or pleural effusion. Mild cardiomegaly is unchanged. Mediastinal contours are normal. There is no evidence for pulmonary edema. Cervical Spine Date: 12/02/22 No acute fracture or subluxation. Degenerative changes as above include moderate C6-C7 intervertebral disc space narrowing.
[~2023-06-30 09:14] MED LIST changes: -ACETAMINOPHEN 500 MG TAB PO SCH; +BUPIVACAINE 0.25% PF 30 ML VIAL ONE; -BUPIVACAINE 0.5 % 5 MG/1 ML PF 10ML VIAL ONE; +DEXAMETHASONE SOD INJ 4 MG/ML VIAL ONE; +EPINEPHrine INJ 1 MG/ML AMP ONE; -FAMOTIDINE 20 MG TAB PO SCH; -GABAPENTIN 600 MG DOSE PO SCH; -LR 60ML/HR IV SCH; -ROPIVACAINE 0.5% HCL/PF 150 MG, BUPIVACAINE 0.75% MPF 20 ML, EPINEPHrine 30MG/30ML (OR ... INFIL SCH; -TRANEXAMIC ACID 1,000 MG **IV Intra-op IV SCH; -TRANEXAMIC ACID 1,000 MG **IV Pre-op IV SCH; -dexAMETHasone 4 MG TAB PO SCH
[2023-06-30] MEDS ORDERED: ceFAZolin 2,000 MG/15 ML IV PUSH IV ONE (09:30)
[2023-06-30] MEDS: LR 15ML/HR IV SCH ×3 (09:56→10:18)
[2023-06-30] MEDS: LR 60ML/HR IV SCH ×2 (10:33→10:34)
[2023-06-30] MEDS ORDERED: LIDOCAINE 2% 2 ML VIAL/AMP(20MG/ML) INFIL ONE (10:36)
[2023-06-30] MEDS ORDERED: DEXAMETHASONE SOD INJ 4 MG/ML VIAL ONE (10:36)
[2023-06-30] MEDS ORDERED: ONDANSETRON INJ 2 MG/ML 2 ML VIAL ONE (10:36)
[2023-06-30] MEDS ORDERED: MIDAZOLAM HCL 1 MG/ML 2ML VIAL ONE (10:36)
[2023-06-30] MEDS ORDERED: PROPOFOL IV EMULSION 10 MG/ML 20 ML VIAL IV ONE ×2 (10:36→12:48)
[2023-06-30] MEDS ORDERED: fentaNYL citrate PF 100 MCG/2 ML VIAL ONE ×2 (10:36→12:44)
--- NOTE | 2023-06-30 11:19 | History & Physical Bridge Note ---
Date of Service June 30, 2023 History & Physical Bridge Note I have examined the patient, reviewed the History & Physical and in the interval since the performance of the History & Physical I have noted the following changes of clinical significance: no changes noted
[2023-06-30] MEDS ORDERED: ePHEDrine sulfate 50 MG/ML SYR ONE (12:50)
--- NOTE | 2023-06-30 13:09 | Operative Report ---
PG Post Operative Report Pre & Post Diagnosis Operation Date: 06/30/23 10:50 Pre-Op Diagnosis: Left Patella Fracture Post-Op Diagnosis: Left Patella Fracture I identified the patient and participated in the time-out.: Yes Procedure Operation Date: 06/30/23 10:50 Actual Procedures p partial patellectomy me of the left patella with patella tendon repair (Left) - Luan Lopez DO Surgeon Luan Lopez DO Stock Broker Luan Eubanks PA-C Estimated Blood Loss 10 Findings Consistent with Post-Op Diagnosis Specimens None Description of Procedure On June 30, 2023 Marco arrived at [facility] for the above procedure. He was seen in the preoperative holding area and the operative extremity identified and signed. She was given a preoperative antibiotic and a local anesthetic. She was taken back to the operating room and laid on the table in supine position. She was put under general anesthesia. The previous suki were removed. The left knee was then prepped and draped in sterile fashion. A timeout was done. The patient and the operative extremity was properly identified. A previous midline incision was opened back up. Dissection was taken down to a very thick layer of Amada's fascia. This was opened up. The previous wire implants were identified. The wire was removed and the 2 K wires were removed. The wounds then irrigated. The knee was flexed to about 120 degrees. The knee joint was irrigated with surgiphor Betadine lavage. After 2 previous failed repairs, I decided to do a inferior pole patellectomy and repair of the patella tendon directly to the patella. The inferior pole of the patella was resected. The patella tendon was then whipstitched with Arthrex #2 fiber tapes. 3 drill holes were placed through the patella. The sutures were then placed through one of the 3 drill holes. A single suture was placed laterally, a single suture was placed medially, and 2 sutures were placed through the central hole. The knee was then brought through range of motion. He was then brought into extension. The sutures were then tied. I was able to get a nice repair of the patella tendon. The thickened fascia over top of the repair was repaired directly over top of the patella tendon repair to augment the repair. The wound was once again irrigated with surgiphor. The skin was closed with 2-0 Vicryl and suki. She was then placed in a soft dressing and a knee immobilizer. She was then extubated and transferred to a hospital bed. She was taken to the postanesthesia care unit in stable condition. She tolerated the procedure well. Luan Eubanks PA-C, was present for the entire procedure. He was critical for patient positioning, prepping, draping, retraction exposure, wound closure and application of sterile dressing. I attest to the content of the Intraoperative Record and any orders documented therein. Any exceptions are noted below.
--- NOTE | 2023-06-30 15:32 | Anesthesiology Progress Note ---
Date of Service June 30, 2023 Anesthesia Post Procedure Vital Signs Vital Signs: Temp Pulse Pulse Resp BP Pulse Ox O2 Del Method 06/30/23 15:00 36.4 C L 95 H 14 96/64 L 97 Nasal Cannula 06/30/23 14:30 95 H 15 105/78 97 Nasal Cannula 06/30/23 14:10 93 H 14 92/63 L 98 Nasal Cannula 06/30/23 13:55 87 12 108/65 96 Nasal Cannula 06/30/23 13:45 90 13 96/58 L 96 Nasal Cannula 06/30/23 13:35 86 14 117/84 99 Oxymask 06/30/23 13:25 87 13 114/77 99 Oxymask 06/30/23 13:19 36.1 C L 87 15 101/71 100 Oxymask 06/30/23 10:04 36.8 C 93 H 20 123/88 96 Room Air O2 Flow Rate 06/30/23 15:00 2 06/30/23 14:30 2 06/30/23 14:10 2 06/30/23 13:55 2 06/30/23 13:45 2 06/30/23 13:35 10 06/30/23 13:25 10 06/30/23 13:19 10 06/30/23 10:04 Transfer of Care Handoff Completed per policy Notes Mental Status: alert / awake / arousable Patient Amnestic to Procedure: Yes Nausea / Vomiting: adequately controlled Pain: adequately controlled Airway Patency, RR, SpO2: stable & adequate BP & HR: stable & adequate Hydration State: stable & adequate Anesthetic Complications: no major complications apparent
[2023-06-30] MEDS ORDERED: MAGNESIUM HYDROXIDE SUSP 30 ML UDC PO PRN (16:30)
[2023-06-30] MEDS ORDERED: HYDROmorphone INJ 0.5 MG/0.5 ML SYR IV PRN (16:30)
[2023-06-30] MEDS ORDERED: oxyCODONE HCL IR 5 MG TAB (IMMEDIATE RELEASE) PO PRN (16:30)
[2023-06-30] MEDS ORDERED: NALOXONE HCL 0.4 MG/1 ML VIAL/CARP IV PRN (16:30)
[2023-06-30] MEDS ORDERED: FUROSEMIDE 20 MG TAB PO PRN (16:30)
[2023-06-30] MEDS ORDERED: ONDANSETRON INJ 2 MG/ML 2 ML VIAL IV PRN (16:30)
[2023-06-30] MEDS ORDERED: RIZATRIPTAN BENZOATE 10 MG TAB PO PRN (16:30)
[2023-06-30] MEDS ORDERED: ZOLEDRONIC ACID 5 MG/100 ML VIAL IV SCH (16:30)
[2023-06-30] MEDS ORDERED: METOCLOPRAMIDE HCL INJ 5 MG/ML 2 ML VIAL IV PRN (16:30)
[2023-06-30] MEDS ORDERED: bisacodyL 10 MG SUPP PR PRN (16:30)
[2023-06-30] MEDS: KETOROLAC TROMETHAMINE 15 MG/ML VIAL IV SCH ×2 (17:35→22:12)
[2023-06-30] MEDS: CYCLOBENZAPRINE HCL 10 MG TAB PO SCH ×2 (17:36→20:54)
[2023-06-30] MEDS: SODIUM CHLORIDE 0.9% 1000ML 1,000 ML IV SCH (17:36)
[2023-06-30] MEDS: ACETAMINOPHEN 500 MG TAB PO SCH ×2 (17:36→22:12)
[2023-06-30] MEDS: GABAPENTIN 300 MG CAP PO SCH ×2 (18:00→20:51)
[2023-06-30] MEDS: ASPIRIN 81 MG ECTAB PO SCH (20:54)
[2023-06-30] MEDS: ceFAZolin 2000MG 2,000 MG/15 ML SYR IV SCH (20:54)
[2023-06-30] MEDS: DOCUSATE SODIUM 100 MG CAP PO SCH (20:54)
[2023-06-30] MEDS ORDERED: SENNA 8.6 MG TAB PO SCH (21:00)
[2023-06-30] MEDS ORDERED: PRAMIPEXOLE DIHYDROCHLO 0.25 MG TAB PO SCH (21:00)
[2023-06-30] MEDS ORDERED: AMITRIPTYLINE HCL 10 MG TAB PO SCH (21:00)
[2023-06-30] MEDS ORDERED: ROSUVASTATIN CALCIUM 20 MG TAB PO SCH (21:00)
[2023-06-30] MEDS ORDERED: ZOLPIDEM TARTRATE 10 MG TAB PO SCH (21:00)
[2023-07-01] MEDS: SODIUM CHLORIDE 0.9% 1000ML 1,000 ML IV SCH (02:55)
[2023-07-01] MEDS: ceFAZolin 2000MG 2,000 MG/15 ML SYR IV SCH (02:55)
[2023-07-01] MEDS: ACETAMINOPHEN 500 MG TAB PO SCH (05:32)
[2023-07-01] MEDS: KETOROLAC TROMETHAMINE 15 MG/ML VIAL IV SCH (05:33)
[2023-07-01] MEDS ORDERED: LR 60ML/HR IV SCH (06:00)
[2023-07-01] MEDS ORDERED: ceFAZolin 2000MG 2,000 MG/15 ML SYR IV SCH (06:00)
[2023-07-01] MEDS ORDERED: dexAMETHasone 4 MG TAB PO SCH (08:00)
[2023-07-01] MEDS: CYCLOBENZAPRINE HCL 10 MG TAB PO SCH (08:13)
[2023-07-01] MEDS: DOCUSATE SODIUM 100 MG CAP PO SCH (08:13)
[2023-07-01] MEDS: GABAPENTIN 300 MG CAP PO SCH (08:13)
[2023-07-01] MEDS: ASPIRIN 81 MG ECTAB PO SCH (08:14)
[2023-07-01] MEDS ORDERED: PANTOprazole 40 MG TAB PO SCH (09:00)
[2023-07-01] MEDS ORDERED: OXYBUTYNIN CHLORIDE XL 5 MG TABCR PO SCH (09:00)
[2023-07-01] MEDS ORDERED: LOSARTAN POTASSIUM 50 MG TAB PO SCH (09:00)
[2023-07-01] MEDS ORDERED: ESCITALOPRAM OXALATE 20 MG TAB PO SCH (09:00)
[2023-07-01] MEDS ORDERED: LEFLUNOMIDE 10 MG TAB PO SCH (09:00)
[2023-07-01] MEDS ORDERED: MULTIVITAMIN TAB PO SCH (09:00)
[2023-07-01] MEDS ORDERED: amLODIPine BESYLATE 5 MG TAB PO SCH (09:00)
[2023-07-01] MEDS ORDERED: POTASSIUM CHLORIDE CRTAB 20 MEQ TABCR PO SCH (09:00)
[2023-07-01] MEDS ORDERED: hydroCHLOROthiazide 25 MG TAB PO SCH (09:00)
--- NOTE | 2023-07-01 15:09 | Orthopedic Progress Note ---
Date of Service July 01, 2023 Assessment & Plan (1) Left patella fracture: Overall she is doing very well. She is not having much pain in the left knee. She will be touch toe weightbearing on the left leg. She is on aspirin for DVT prophylaxis. She can be discharged home later today. She will follow-up orthopedics in 2 weeks. Justa Christianson was seen and examined at bedside this morning. Overall she is doing very well. She is not having much pain in the left knee. She has no complaints.. Review of Systems All systems reviewed & are unremarkable except as noted in HPI & below. Physical Exam On physical examination of left knee, the dressing is clean and dry. The leg is out full extension. There is a knee immobilizer in place.. Results & Data Results & Data Laboratory Results . Diagnostic Findings . PG Care Time/CCT Total # of Minutes Spent Total Time Spent with Patient: Total time spent is greater than 50% in coordination of care (as documented) at patient's floor/unit and/or counseling patient: Coding Level of Care Code 64713 Post Operative Follow-Up Diagnoses Left patella fracture S82.002A
--- NOTE | 2023-07-01 15:10 | Discharge Summary ---
Date of Service July 01, 2023 Principal Diagnosis Same as "Discharge Diagnosis" noted below under Discharge Instructions. Discharge Exam On physical examination of left knee, the dressing is clean and dry. The leg is out full extension. There is a knee immobilizer in place.. Discharge Data Procedures Performed Operation Date: 06/30/23 10:50 Actual Procedures p Left Patella Tendon Repair(Left) - Luan Lopez DO Ordered Studies 06/30/23 05:00 US - OR guided needle placemen Routine Hospital Course (1) Patella fracture: On June 30, 2023 Meghan arrived at [facility] and underwent a left patella tendon reconstruction without complication. She had a general anesthetic. Postoperatively she was placed in a knee immobilizer and transferred to the general orthopedic floors. The hospital course was u neventful. On postop day #1, the vital signs were stable and the pain was well controlled. She was able to participate well with physical therapy doing ambulation and range of motion exercises. She was then discharged home. She will follow-up orthopedics in 2 weeks. PG Care Time/CCT Total # of Minutes Spent Total Time Spent with Patient: Total time spent is greater than 50% in coordination of care (as documented) at patient's floor/unit and/or counseling patient: Discharge Plan Discharge Items Patient Disposition: Home - Home Health Services Reason For Visit: Left Patella Fracture Discharge Diagnosis: Left patella tendon repair. Activity: Per Instructions section Non-emergency contact: Surgeon Call non-emergency contact if: your wound has increased redness and your wound has increased drainage Follow-up/Referrals: Latanya Tyler MD [Primary Care Provider] - 07/07/23 7:00 am (Will see Shaylee Steinberg PA-C in Dr Tyler's office) Diet: Regular Addtl Attending Provider Instructions: ORTHOPEDIC INSTRUCTIONS Activity Recommendations: Touchdown weightbearing on the left leg. Stay in left knee immobilizer at all times, except when showering. Medications: May take the Percocet as needed for pain. Take aspirin 81 mg twice a day to prevent blood clots. Dressing Care: You can change the dressing for 5 days after the day of surgery. Osito can be open to air as long as the incisions are not draining. If the incisions are draining or if the osito are getting caught on your clothes then please cover the osito with dry gauze. Change the dressings as necessary to keep the incision as dry as possible Showering: You may shower 5 days from the day of surgery as long as the incisions are not draining. Do not soak the incision. Let soapy water run over the osito and pat them dry. Things To Watch For: 1. Drainage from the incision site that occurs more than one week after your surgery. 2. Increased redness at the incision site. 3. Fever above 102 degrees Fahrenheit. 4. Unusual chest pain or shortness of breath. 5. Call [facility] at with any of the above problems Follow-Up Visit: Follow-up with Dr. Lopez's PA (Luan Eubanks) 2-3 weeks after your day of surgery. He will remove your osito and answer any questions. If you have any additional questions or concerns, Dr Lopez is usually in the office at the same time and will be available Please call the office to set up an appointment for a time that works for you. Pending Studies at Discharge: No Stand-Alone Forms: My [facility] What the Trend, Smoking Cessation Medications and DC Order Prescriptions: New aspirin [Adult Aspirin Regimen] 81 mg tablet,delayed release (DR/EC) 81 mg PO BID Qty: 84 0RF oxycodone-acetaminophen [Percocet] 5-325 mg tablet 1 tab PO Q6H PRN (Reason: pain) Qty: 30 0RF Continued amlodipine 5 mg tablet 5 mg PO QAM Qty: 90 0RF rizatriptan 10 mg tablet See Rx Instructions .ROUTE .COMPLEX Qty: 18 3RF Dose Instruction: TAKE 1 TABLET BY MOUTH AT ONSET OF MIGRAINE MAY REPEAT EVERY 2 HOURS IF NEEDED MAXIUM OF 3 TABLETS IN 24 HOURS Rx Instructions: TAKE 1 TABLET BY MOUTH AT ONSET OF MIGRAINE MAY REPEAT EVERY 2 HOURS IF NEEDED MAXIUM OF 3 TABLETS IN 24 HOURS escitalopram oxalate 20 mg tablet 20 mg PO QAM Qty: 90 3RF potassium chloride [Klor-Con M20] 20 mEq tablet,ER particles/crystals 20 meq PO DAILY Qty: 90 3RF omeprazole 40 mg capsule,delayed release(DR/EC) 40 mg PO QAM Qty: 90 1RF hydrochlorothiazide 25 mg tablet 25 mg PO QAM Qty: 90 3RF amitriptyline 10 mg tablet 10 mg PO HS Qty: 90 3RF Patient Comments: HS furosemide 20 mg tablet 20 mg PO QAM PRN (Reason: edema) Qty: 90 1RF losartan 100 mg tablet 100 mg PO QAM Qty: 90 3RF Patient Comments: QAM pramipexole 0.25 mg tablet See Rx Instructions .ROUTE .COMPLEX Qty: 180 1RF Dose Instruction: TAKE 1 TO 2 TABLETS BY MOUTH AT BEDTIME Rx Instructions: TAKE 1 TO 2 TABLETS BY MOUTH AT BEDTIME rosuvastatin 20 mg tablet 20 mg PO HS Qty: 90 3RF Patient Comments: HS gabapentin 300 mg capsule 300 mg PO TID Qty: 90 zolpidem 10 mg tablet 10 mg PO HS Patient Comments: Caltrate-D3 Plus Minerals 300 mg-800 unit -25 mg-0.5 mg tablet 1 tab PO BID multivitamin [Daily Multi-Vitamin] tablet 1 tab PO QAM nabumetone 750 mg tablet 750 mg PO BID (DME) Ultra-Light Rollator Misc See Rx Instructions .Route Qty: 1 0RF Rx Instructions: As directed oxybutynin chloride 5 mg tablet extended release 24hr 5 mg PO DAILY Qty: 90 1RF zoledronic aree-mrhcnubs-fdlzf [Reclast] 5 mg/100 mL Piggyback 5 ea IV YEARLY cyclobenzaprine 10 mg Tablet 10 mg PO TID leflunomide 10 mg Tablet 10 mg PO QAM oxycodone-acetaminophen [Percocet] 5-325 mg tablet 1 tab PO Q6H PRN (Reason: pain) Qty: 30 0RF Admission Data Admit Date/Time: 06/30/23 13:24 Attending Provider: Luan Lopez Admit Provider: Luan Lopez Primary Care Provider: Latanya Tyler Other Interventions: Discharge Summary Assessment (RN) Last Done: 07/01/23 09:43
== END 2023-07-01 13:22 | disposition home health service (06) ==
LOC: ASU 09:14 → PACUINP 09:14 → 3N 15:35